=== PATIENT | female | born 1940 | race Caucasian/White ===

== ENCOUNTER → 2018-08-21 10:35 | Outpatient (CLI) | payer MEDICARE, SELFPAY ==
[2018-08-21 11:57] LABS: Alanine Aminotransferase 24 U/L (12-78); Albumin Level 3.6 gm/dL (3.4-5.0); Alkaline Phosphatase 66 U/L (46-116); Aspartate Amino Transferase 14 U/L (15-37); Bilirubin,Direct 0.1 mg/dL (0.0-0.2); Bilirubin,Indirect 0.4 mg/dL (0.0-0.9); Bilirubin,Total 0.5 mg/dL (0.2-1.0); Chol/HDL Ratio 3.8 (1-3.5); Cholesterol 248 mg/dL (140-200); HDL Cholesterol 66 mg/dL (29-89); LDL Cholesterol 157 mg/dL (0-130); Total Protein,Serum 6.4 gm/dL (6.4-8.2); Triglycerides 125 mg/dL (30-200); VLDL Cholesterol 25 mg/dL (0-40)
== END ==
PROVIDERS: Visit Provider Internal Medicine
DX: E78.5 Hyperlipidemia, unspecified (principal); I25.10 Atherosclerotic heart disease of native coronary artery without angina pectoris
CPT/HCPCS: 80061; 80076

== ENCOUNTER → 2018-10-21 09:30 | Outpatient (CLI) | payer MEDICARE, SELFPAY ==
--- NOTE | 2018-10-21 09:35 | MM_ITS ---
MM Dig screening mamm BI w/CAD ORDERING PHYSICIAN : Max Hughes MD PATIENT AGE: 77 years GENDER: Female COMPARISON: June 20142012, 2011, September 2017, INDICATION: ITS.REASON: SCREENING no hormones. No new complaints. Family history. Sibling sister with breast cancer. Premenopausal TECHNIQUE: Standard CC and MLO images were obtained. R2 CAD reviewed. FINDINGS: Mild residual fibroglandular elements. Mild asymmetry. But overall similar appearance since multiple previous studies RIGHT BREAST:No new findings The asymmetric area of tissue superior right breast on MLO view appears stable. The area of minimal density at the medial right breast on cc view is stable. LEFT BREAST:. No new areas of concern Stable mild asymmetric breast tissue inferior left breast IMPRESSION: Stable bilateral mammogram . No significant new findings.. Stable mild asymmetry Follow-up in one year recommended BI-RADS Category: 2 Benign Finding(s) RECOMMENDED FOLLOW-UP: 1YR 1 YEAR FOLLOW-UP (A letter has been sent to the patient regarding results of the study.)
== END ==
PROVIDERS: PCP Internal Medicine Adolescent Medicine; Visit Provider Internal Medicine Adolescent Medicine
DX: Z12.31 Encounter for screening mammogram for malignant neoplasm of breast (principal)
CPT/HCPCS: 77067

== ENCOUNTER → 2018-11-08 10:44 | Outpatient (CLI) | payer MEDICARE, SELFPAY ==
--- NOTE | 2018-11-08 10:47 | XR_ITS ---
XR DEXA axial skeleton HISTORY: ITS.REASON: OSTEOPENIA ORDERING PHYSICIAN: Max Hughes MD PATIENT AGE: 77 years COMPARISON: 09/27/2016 FINDINGS: The BMD measured at the left femoral neck is 0.806 g/cm squared with a T score of -1.7. This is considered Osteopenic according to the World Health Organization criteria. Fracture risk is Moderate. Treatment is advised. Hip density is not significant change compared to the previous exam IMPRESSION: Osteopenia with moderate fracture risk. Recommend follow-up exam October 2020. Treatment is advised
== END ==
PROVIDERS: PCP Internal Medicine Adolescent Medicine; Visit Provider Internal Medicine Adolescent Medicine
DX: M85.89 Other specified disorders of bone density and structure, multiple sites (principal)
CPT/HCPCS: 77080

== ENCOUNTER 2019-01-17 00:31 | Observation (INO) ==
[2019-01-17 00:48] LABS: Basophils # 0.1 K/mm3 (0-0.2); Basophils % 0.9 % (0.1-2.0); Eosinophils # 0.2 K/mm3 (0.0-0.4); Eosinophils % 2.6 % (0.1-12.0); Hematocrit 40.2 % (37.0-47.0); Hemoglobin 13.3 g/dL (12.2-16.2); Lymphocytes # 3.7 K/mm3 (0.7-4.5); Lymphocytes % 40.7 % (10-50); Mean Corpuscular Hemoglobin 29.2 pg (27.0-31.2); Mean Corpuscular Volume 88.5 fl (81-99); Mean Platelet Volume 7.3 fl (7.4-10.4); Monocytes # 0.6 K/mm3 (0.1-1.0); Monocytes % 6.3 % (1.7-9.3); Neutrophils # 4.4 K/mm3 (1.8-7.8); Neutrophils % 49.4 % (37.0-80.0); Platelet Count 288 K/mm3 (142-424); Red Blood Count 4.54 M/mm3 (4.20-5.40); Red Cell Distribution Width 13.5 % (11.5-17.5)
--- NOTE | 2019-01-17 00:48 | Emergency Department Note ---
ED Disposition Clinical Impression: Renal insufficiency Chest pain Qualifiers: Chest pain type: precordial pain Qualified Code(s): R07.2 - Precordial pain HTN (hypertension) Qualifiers: Hypertension type: essential hypertension Qualified Code(s): I10 - Essential (primary) hypertension Disposition: Admitted as Observation Condition on Discharge: Good Referrals: Provider,Referral, [Referring] - - Critical Care Critical Care Time: No Attestation: On 01/17/19, the high probability of a clinically significant, sudden or life threatening deterioration of the following system(s) required my full and direct attention, intervention and personal management. The time I documented below is in addition to time spent performing reported procedures but includes the following listed in this critical care notation. Medical Decision Making - Medical Records Medical records reviewed: Yes: I reviewed the patient's medical records. - [place] Inquiry Pt receiving controlled substance: No Vital Signs: 01/17/19 00:32 Temperature 97.9 F Temperature Source Temporal Artery Scan Pulse Rate [Right Radial] 60 Respiratory Rate 18 Blood Pressure [Right Arm] 180/81 H Blood Pressure Mean [Right Arm] 114 Blood Pressure Source [Right Arm] Automatic Cuff Blood Pressure Position [Right Arm] Sitting 02 Sat by Pulse Oximetry 98 Oxygen Delivery Method Room Air - Lab Data Lab results reviewed: Yes: I reviewed the patient's lab results. Lab Results 01/17/19 00:40: WBC 9.0, RBC 4.54, Hgb 13.3, Hct 40.2, MCV 88.5, MCH 29.2, MCHC 33.0, RDW 13.5, Plt Count 288, MPV 7.3 L, Neut % (Auto) 49.4, Lymph % (Auto) 40.7, Graves % (Auto) 6.3, Eos % (Auto) 2.6, Baso % (Auto) 0.9, Neut # (Auto) 4.4, Lymph # (Auto) 3.7, Graves # (Auto) 0.6, Eos # (Auto) 0.2, Baso # (Auto) 0.1 01/17/19 00:40: Sodium 138, Potassium 4.0, Chloride 100, Carbon Dioxide 30, Anion Gap 12.0, BUN 21 H, Creatinine 1.15 H, Estimated Creat Clear 39, Estimated GFR 46 L, Est GFR ( Amer) 55 L, Glucose 114 H, Calcium 9.7, Troponin I < 0.02 Result diagrams: 01/17/19 00:40 01/17/19 00:40 Orders (Tests/Meds): ED MEDICATIONS Generic Name Dose Route Start Last Admin Trade Name Freq PRN Reason Stop Dose Admin Sodium Chloride 10 ml 01/17/19 00:39 Saline Flush 10ml Syringe IV 02/16/19 00:38 NEEDED PRN Maintain IV Site Discontinued Medications Generic Name Dose Route Start Last Admin Trade Name Freq PRN Reason Stop Dose Admin Aspirin 243 mg 01/17/19 00:39 01/17/19 00:42 Aspirin 81mg Chewable Tablet PO 01/17/19 00:40 243 mg ONCE ONE Administration ORDERS Category Date Time Status XR chest portable Stat Exams 01/17/19 00:38 Taken - Radiology Data #1 Image(s): Chest Image Reviewed: Yes I reviewed the patient's radiology image Preliminary Findings: Abnormal (no acute changes ) - ECG Data Tracing #1 Normal Sinus Rhythm: Yes Ischemic changes: non-specific ST-T wave changes - Physician Consults Physician Consulted: mercedes Reason -: Admission Chest Pain HPI - General Chief Complaint: Chest Pain Stated Complaint: chest pain Time Seen by Provider: 01/17/19 00:35 Mode of Arrival: Ambulatory Source of Information: Patient, Relative, Medical Record Limitations: No Limitations Description of Symptoms (Recalled from ER Triage Doc. by RN): pt reports she was sitting at home when she started having chest pain that "felt like her heart was going to explode" reports she started shaking and having chest pain (left chest wall) that radiates into her neck, reports pain has decreased since arriving to the ED - History of Present Illness HPI narrative: acute onset of chest pain at rest with rad to neck assoc with inc hr and no syncope and lasted a few minutes MD complaint: chest pain indicative of cardiac Onset (ago): minute(s) Duration: now resolved Activity at onset: during rest Pain location: left chest Severity: moderate Quality: sharp Pain radiation: neck Risk Factors for CAD: Hypertension, Family Hx of CAD Treatments prior to or on arrival for Cardiac Chest Pain: none - LOUIS Score for Non-Stemi Age of Patient: 70-79 years old Heart Rate: 50-69 bpm Systolic Blood Pressure: 160-199 mmHg Serum Creatinine: 0.80-1.19 mg/dl CHF Kill[place] Class: I-No CHF Other Risk Factors: None Non-Stemi Risk Score: 95 - Related Data Prior Cardiac Testing/Procedures: Stenting On Oral Contraceptives: No Home Medications Medication Instructions Recorded Confirmed aspirin 81 mg tablet,delayed 81 mg PO QDAY 12/17/17 11/12/18 release bisoprolol 2.5 1 tab PO QDAY 12/17/17 11/12/18 mg-hydrochlorothiazide 6.25 mg tablet clopidogrel 75 mg tablet 75 mg PO QDAY 12/17/17 11/12/18 nitroglycerin 0.4 mg sublingual 0.4 mg SUBLINGUAL Q5M PRN 12/17/17 11/12/18 tablet pantoprazole 40 mg tablet,delayed 40 mg PO QDAY 12/17/17 11/12/18 release calcium carbonate 500 mg (1,250 1 tab PO DAILY tab 05/14/18 11/12/18 mg)-vitamin D3 400 unit tablet Previous Rx's Medication Instructions Recorded lisinopril 20 mg tablet 20 mg PO QDAY #60 tab 12/18/17 blood pressure monitor kit See Dose Instructions .ROUTE 08/20/18 .MEDSUPPLY #1 each ezetimibe 10 mg tablet 10 mg PO DAILY #30 tab 09/11/18 atorvastatin 20 mg tablet 20 mg PO QHS #30 tab 11/12/18 Allergies Allergy/AdvReac Type Severity Reaction Status Date / Time azithromycin Allergy Unknown Verified 11/12/18 10:10 [facility] History - Hepatitis A Screen Drug use history?: No High risk sexual behaviors?: No History of sexually transmitted infection?: No Currently employed?: No Childcare worker?: No Do you have indoor plumbing?: Yes Do you have electricity?: Yes Attestation statement:: This patient has been screened for Hepatitis A risk factors. I have reviewed the patient's past medical history: Yes Medical History: Reports:: Coronary Artery Disease, Hyperlipidemia, Hypertension Other Medical History: Reports: Thyroid Disease Other Surgeries: Yes: Coronary Stent - Social History Smoking Status: Never smoker Alcohol Intake: never Occupational Status: unemployed - Psychiatric History Expresses thoughts of harming self/others: None Suicide Plan Description: No Plan Family Hx:: No significant family history ROS Obtained: Yes All systems reviewed & no additional complaints - Constitutional Constitutional: Denies fever(s) - Eyes Eyes: Denies change in vision - ENT Ears, Nose, Mouth, and Throat: Denies sore throat - Cardiovascular Cardiovascular: Reports chest pain, Reports chest pain at rest, Denies dyspnea, Reports radiating jaw, neck or arm pain, Reports rapid heart rate - Respiratory Respiratory: No cough - Gastrointestinal Gastrointestingal: Denies: abdominal pain - Genitourinary Female Genitourinary: Denies hematuria - Musculoskeletal Musculoskeletal: Denies back pain - Integumentary/Breasts Skin/Breast: Denies rash - Neurologic Neurologic: Denies seizure-like activity Physical Exam - General General appearance: in no apparent distress - Head Head exam: normocephalic - Eye Eye exam: Present: PERRL, EOMI. Absent: scleral icterus - ENT ENT exam: Present: mucous membranes moist - Neck Neck exam: Present: trachea midline - Respiratory Respiratory exam: Present: normal lung sounds bilaterally. Absent: respiratory distress - Cardiovascular Cardiovascular exam: Present: regular rate, systolic murmur, +S4 - Abdominal Exam Abdominal exam: Present: soft. Absent: tenderness - Extremities Exam Extremities exam: Present: full ROM, pedal edema. Absent: calf tenderness - Neurological Exam Neurological exam: Present: alert, oriented X3, CN II-XII intact - Psychiatric Psychiatric exam: Present: normal affect - Skin Skin exam: Absent: rash
[2019-01-17 01:03] LABS: Blood Urea Nitrogen 21 mg/dL (7-18); Calcium 9.7 mg/dL (8.5-10.1); Carbon Dioxide 30 mmol/L (21.0-32.0); Chloride 100 mmol/L (98-107); Glucose 114 mg/dL (74-106); Sodium 138 mmol/L (136-145)
[2019-01-17 04:37] LABS: Basophils # 0.1 K/mm3 (0-0.2); Basophils % 0.9 % (0.1-2.0); Eosinophils # 0.2 K/mm3 (0.0-0.4); Eosinophils % 2.3 % (0.1-12.0); Hematocrit 38.3 % (37.0-47.0); Hemoglobin 12.7 g/dL (12.2-16.2); Lymphocytes # 3.1 K/mm3 (0.7-4.5); Lymphocytes % 39.7 % (10-50); Mean Corpuscular HGB Conc 33.1 g/dL (31.8-35.4); Mean Corpuscular Hemoglobin 29.4 pg (27.0-31.2); Mean Corpuscular Volume 88.8 fl (81-99); Mean Platelet Volume 7.4 fl (7.4-10.4); Monocytes # 0.4 K/mm3 (0.1-1.0); Monocytes % 5.1 % (1.7-9.3); Platelet Count 251 K/mm3 (142-424); Red Blood Count 4.31 M/mm3 (4.20-5.40); Red Cell Distribution Width 13.5 % (11.5-17.5); White Blood Count 7.7 K/mm3 (4.8-10.8)
[2019-01-17 04:47] LABS: Anion Gap 10.3 mEq/L (5-15); Calcium 9.2 mg/dL (8.5-10.1); Chol/HDL Ratio 3.8 (1-3.5); Potassium 4.3 mmoL/L (3.5-5.1)
--- NOTE | 2019-01-17 07:18 | Pharmacy Consult Notes ---
[facility] Pharmacy VTE Monitoring - Patient Demographics Admission date: 01/16/19 Report Date: 01/17/19 Time: 07:17 Allergies/Adverse Reactions: Patient Allergies azithromycin Allergy (Unknown, Verified 11/12/18 10:10) Height: 1.57 m Weight: 63.6 kg Patient Problems: Current Active Problems Chest pain (Acute) Renal insufficiency (Acute) HTN (hypertension) (Chronic) - VTE Risk Labs: VTE Related Lab Results Hgb 12.7 g/dL (12.2-16.2) 01/17/19 04:27 Hct 38.3 % (37.0-47.0) 01/17/19 04:27 Plt Count 251 K/mm3 (142-424) 01/17/19 04:27 BUN 19 mg/dL (7-18) H 01/17/19 04:27 Creatinine 1.05 mg/dL (0.55-1.02) H 01/17/19 04:27 Estimated Creat Clear 44 mL/min (50-200) 01/17/19 04:27 Was VTE Risk Assessment Performed: Yes VTE Score: 1 VTE Risk Level: Very Low Risk Clinical Trial Participant: No - Prophylaxis VTE Prophylaxis Ordered?: Yes Types of VTE Prophylaxis: TEDS Knee High
--- NOTE | 2019-01-17 08:17 | History & Physical Report ---
*Admission Date: 01/16/19 *Chief complaint: Chest pain/coronary atherosclerosis *History of present illness: 78-year-old white female with known cardiac disease, status post left heart cath with stenting of circumflex artery as noted below: (ANGIOGRAPHIC RESULTS: 2015 1. The left main artery normal 2. The left anterior descending artery has proximal 30% stenoses followed by an additional 50% stenosis immediately adjacent to the first septal cheese tester. Distal to the second diagonal artery there is 30-40% concentric stenoses. Distally there are 30% stenoses 3. The circumflex artery is nondominant yet still a large vessel supplying a large 3 mm obtuse marginal artery. There is a proximal 50% followed by a focal 90% stenosis in this large vessel 4. The right coronary artery is dominant and has proximal eccentric 30% stenosis which is long and extends throughout the entire mid segment 5. The QUINTANILLA ventriculogram reveals normal 65% 6. The left ventricular end-diastolic pressure 10 mmHg IMPRESSION: 1. Severe stenosis in the large obtuse marginal artery supplying the large amount of myocardium 2. Moderate proximal and mid LAD disease as described above 3. Normal ejection fraction 4. Normal left ventricular end-diastolic pressure PLAN: 1. Brilinta and aspirin will be started 2. Patient will be transferred will undergo stenting of her circumflex artery today 3. Risk factor modification 4. LDL will be managed medically at this point although I may consider performing an FFR on the LAD today after stenting of the obtuse marginal artery) Patient did well after this stenting procedure but has not been able to tolerate statins. Early this morning woke up with crushing, substernal chest associated with shortness of air and nausea, but came to the emergency department. Admitted to hospital. Troponins negative but significant history and known coronary disease is very concerning. [facility] History I have reviewed the patient's past medical history: Yes Medical History: Reports:: Coronary Artery Disease, Hyperlipidemia, Hypertension Denies:: Diabetes Mellitus Type 1, Diabetes Mellitus Type 2 *Have you ever received a pneumonia vaccine?: Yes *Have you received a flu vaccine this season?: Yes Other Medical History: Reports: Thyroid Disease Laterality Cases: Bilateral: Cataract Other Surgeries: Yes: Coronary Stent, Hysterectomy-Partial - *Social History Educational Level: Attended College Smoking Status: Never smoker Alcohol Intake: never *Occupational Status:: retired Housing: house Household Members: children *Travel in the last 8 weeks: None - Psychiatric History Expresses thoughts of harming self/others: None Suicide Plan Description: No Plan Family Hx:: Cancer Review of Systems - Review of Systems Review of systems:: pertinent systems reviewed and negative unless documented below - Constitutional Denies anorexia, Denies body ache(s) - Eyes Denies blind spots, Denies blurry vision - ENT Denies abnormal hearing, Denies bleeding gums - *Cardiovascular Reports chest pain, Reports shortness of breath, Reports shortness of breath with activity, Reports leg swelling, Reports shortness of breath when lying down, Denies irregular heart rhythm - *Respiratory Denies change in phlegm color, Denies chest congestion, Denies cough - *Gastrointestinal Denies abdominal pain, Denies belching, Denies bloating - *Genitourinary Denies abnormal periods - *Musculoskeletal Denies abnormal walking, Denies joint pain - Integumentary/Breasts Denies hair loss - *Neurologic Denies abnormal walking, Denies abnormal hearing, Denies seizure-like activity - Psychiatric Denies abnormal sleep pattern - Endocrine Denies cold intolerance - Hematologic/Lymphatic Denies easy bleeding, Denies easy bruising Meds Home Medications Medication Instructions Recorded Confirmed Type aspirin 81 mg tablet,delayed 81 mg PO DAILY 12/17/17 01/17/19 History release bisoprolol 2.5 1 tab PO DAILY 12/17/17 01/17/19 History mg-hydrochlorothiazide 6.25 mg tablet clopidogrel 75 mg tablet 75 mg PO DAILY 12/17/17 01/17/19 History nitroglycerin 0.4 mg sublingual 0.4 mg SUBLINGUAL Q5M PRN 12/17/17 01/17/19 History tablet pantoprazole 40 mg tablet,delayed 40 mg PO DAILY 12/17/17 01/17/19 History release calcium carbonate 500 mg (1,250 1 tab PO DAILY tab 05/14/18 01/17/19 History mg)-vitamin D3 400 unit tablet Alendronate Sodium [Alendronate 35 mg PO WEEKLY 01/17/19 01/17/19 History 35mg Tablet] Atorvastatin Calcium [Atorvastatin 20 mg PO HS 01/17/19 01/17/19 History 20mg Tab] Ezetimibe 10 mg PO DAILY 01/17/19 01/17/19 History Lisinopril [Lisinopril 20mg Tab] 20 mg PO DAILY 01/17/19 01/17/19 History Allergies Allergy/AdvReac Type Severity Reaction Status Date / Time azithromycin Allergy Unknown Verified 11/12/18 10:10 Exam Vital signs and Labs for Last 24 Hours: Temp Pulse Resp BP Pulse Ox 97.6 F 55 L 20 149/79 H 97 01/17/19 04:00 01/17/19 04:00 01/17/19 04:00 01/17/19 04:00 01/17/19 04:00 Laboratory Results - last 24 hr 01/17/19 00:40: WBC 9.0, RBC 4.54, Hgb 13.3, Hct 40.2, MCV 88.5, MCH 29.2, MCHC 33.0, RDW 13.5, Plt Count 288, MPV 7.3 L, Neut % (Auto) 49.4, Lymph % (Auto) 40.7, Burnett % (Auto) 6.3, Eos % (Auto) 2.6, Baso % (Auto) 0.9, Neut # (Auto) 4.4, Lymph # (Auto) 3.7, Burnett # (Auto) 0.6, Eos # (Auto) 0.2, Baso # (Auto) 0.1 01/17/19 00:40: Sodium 138, Potassium 4.0, Chloride 100, Carbon Dioxide 30, Anion Gap 12.0, BUN 21 H, Creatinine 1.15 H, Estimated Creat Clear 39, Estimated GFR 46 L, Est GFR ( Amer) 55 L, Glucose 114 H, Calcium 9.7, Troponin I < 0.02 01/17/19 04:27: Troponin I 0.02 01/17/19 04:27: WBC 7.7, RBC 4.31, Hgb 12.7, Hct 38.3, MCV 88.8, MCH 29.4, MCHC 33.1, RDW 13.5, Plt Count 251, MPV 7.4, Neut % (Auto) 52.0, Lymph % (Auto) 39.7, Burnett % (Auto) 5.1, Eos % (Auto) 2.3, Baso % (Auto) 0.9, Neut # (Auto) 4.0, Lymph # (Auto) 3.1, Burnett # (Auto) 0.4, Eos # (Auto) 0.2, Baso # (Auto) 0.1 01/17/19 04:27: Sodium 140, Potassium 4.3, Chloride 104, Carbon Dioxide 30, Anion Gap 10.3, BUN 19 H, Creatinine 1.05 H, Estimated Creat Clear 44, Estimated GFR 51 L, Est GFR ( Amer) 61, Glucose 104, Calcium 9.2, Magnesium 2.0, Triglycerides 100, Cholesterol 229 H, LDL Cholesterol 148 H, VLDL Cholesterol 20, HDL Cholesterol 61, Cholesterol/HDL Ratio 3.8 H 01/17/19 07:18: Troponin I 0.03 I & O for Last 24 hours: Intake & Output 01/14/19 01/15/19 01/16/19 01/17/19 11:59 11:59 11:59 11:59 Intake Total 176 / 176 Balance 176 / 176 Weight 140 lb 3.424 oz - Constitutional no acute distress, average body habitus - *Routine HEENT Exam Head: Present: normocephalic, atraumatic Eye: Present: EOMI, PERRL. Absent: conjunctival icterus ENT: Absent: mucous membranes moist - *Routine Neck Exam Present: supple, full ROM. Absent: JVD - *Routine Respiratory Exam Present: CTA bilaterally. Absent: accessory muscle use - *Routine Cardiovascular Exam Present: RRR, Normal S1, Normal S2. Absent: murmur - *Routine Abdominal Exam Present: soft, normoactive bowel sounds, tenderness - *Routine Extremities Exam Absent: cyanosis, clubbing, edema, full ROM - *Routine Skin Exam Present: intact. Absent: cyanosis - *Routine Neurological Exam Present: alert, oriented X3, CN II-XII intact Assessment and Plan (1) Chest pain Current visit: Yes Status: Acute Qualifiers: Chest pain type: precordial pain Qualified Code(s): R07.2 - Precordial pain Category: Medical Code(s): R07.9 - Chest pain, unspecified Negative troponins. See notes below. (2) HTN (hypertension) Current visit: Yes Status: Chronic Qualifiers: Hypertension type: essential hypertension Qualified Code(s): I10 - Essential (primary) hypertension Category: Medical Code(s): I10 - Essential (primary) hypertension Well-controlled. No changes (3) CAD (coronary artery disease) Current visit: No Status: Chronic Qualifiers: Coronary Disease-Associated Artery/Lesion type: curyung artery [place] vs. transplanted heart: curyung heart Associated angina: without angina Qualified Code(s): I25.10 - Atherosclerotic heart disease of curyung coronary artery without angina pectoris Category: Medical Code(s): I25.10 - Atherosclerotic heart disease of curyung coronary artery without angina pectoris Given patient's significant disease noted on catheterization 3 years ago and high likelihood of recurrence of symptomatic disease would recommend left heart cath. Discussed case with cardiology
--- NOTE | 2019-01-17 11:38 | Consult Report ---
History of Present Illness Consult date: 01/17/19 Requesting physician: Max Hughes Consult reason: chest pain Chief complaint: Crusing chest pain and shortness of breath Additional Medical History:: 1. Unstable angina (01/17/2019) a. History of Coronary Artery Disease 2. Dyspnea (01/17/2019) 3. Hypertension a. Controlled on anti-hypertensives 4. Hyperlipidemia a. LDL 148 (01/17/2019) b. Intolerable to statins. 5. Thyroid Disease History of present illness: 78 year old white female presented in the ED with crushing chest pain and shortness of breath. Pt stated the crushing chest pain woke her up from sleep. Pt stated increase shortness of breath with chest pain. Denies cough. Denies swelling of the lower extremities. Pt stated history of Coronary artery disease, hypertension and hyperlipidemia. Denies tobacco usage. Initial work up performed in the ED. ECG revealed sinus rhythm with non-specific ST & T wave changes. CXR revealed no acute findings. Lab results revealed Negative troponins, creatinine 1.15, BUN 21 and LDL 148. Due to pt's unstable angina, will recommend left heart catherization this am. Discussed risk and benefits of the left heart catherization proceed. Pt was agreeable to proceed. Dr. Doll notified. Pending on the results of heart catheterization, further testing and/or additional medication therapy may be recommended. Thank you for letting Cardiology participate in the care of your patient. This H&P was dictated prior to heart catheterization. [facility] History Medical History: Reports:: Coronary Artery Disease, Hyperlipidemia, Hypertension Denies:: Diabetes Mellitus Type 1, Diabetes Mellitus Type 2 *Have you ever received a pneumonia vaccine?: Yes *Have you received a flu vaccine this season?: Yes Other Medical History: Reports: Thyroid Disease Laterality Cases: Bilateral: Cataract Other Surgeries: Yes: Coronary Stent, Hysterectomy-Partial - *Social History Educational Level: Attended College Smoking Status: Never smoker Alcohol Intake: never *Occupational Status:: retired Housing: house Household Members: children *Travel in the last 8 weeks: None - Psychiatric History Expresses thoughts of harming self/others: None Suicide Plan Description: No Plan Family Hx:: Cancer Meds Home Medications Medication Instructions Recorded Confirmed Type aspirin 81 mg tablet,delayed 81 mg PO DAILY 12/17/17 01/17/19 History release bisoprolol 2.5 1 tab PO DAILY 12/17/17 01/17/19 History mg-hydrochlorothiazide 6.25 mg tablet clopidogrel 75 mg tablet 75 mg PO DAILY 12/17/17 01/17/19 History nitroglycerin 0.4 mg sublingual 0.4 mg SUBLINGUAL Q5M PRN 12/17/17 01/17/19 History tablet pantoprazole 40 mg tablet,delayed 40 mg PO DAILY 12/17/17 01/17/19 History release calcium carbonate 500 mg (1,250 1 tab PO DAILY tab 05/14/18 01/17/19 History mg)-vitamin D3 400 unit tablet Alendronate Sodium [Alendronate 35 mg PO WEEKLY 01/17/19 01/17/19 History 35mg Tablet] Atorvastatin Calcium [Atorvastatin 20 mg PO HS 01/17/19 01/17/19 History 20mg Tab] Ezetimibe 10 mg PO DAILY 01/17/19 01/17/19 History Lisinopril [Lisinopril 20mg Tab] 20 mg PO DAILY 01/17/19 01/17/19 History Allergies Allergy/AdvReac Type Severity Reaction Status Date / Time azithromycin Allergy Unknown Verified 11/12/18 10:10 Review of Systems - Review of Systems Review of systems:: pertinent systems reviewed and negative unless documented below - Constitutional Reports weakness - *Cardiovascular Reports chest pain, Reports chest pain at rest, Reports shortness of breath, Reports rapid, pounding, or irregular heartbeat - *Neurologic Denies abnormal walking, Denies abnormal hearing, Denies seizure-like activity Exam Vital signs and Labs for Last 24 Hours: Temp Pulse Resp BP Pulse Ox 97.7 F 57 L 16 143/70 H 98 01/17/19 10:00 01/17/19 10:56 01/17/19 10:56 01/17/19 10:56 01/17/19 10:56 Laboratory Results - last 24 hr 01/17/19 00:40: WBC 9.0, RBC 4.54, Hgb 13.3, Hct 40.2, MCV 88.5, MCH 29.2, MCHC 33.0, RDW 13.5, Plt Count 288, MPV 7.3 L, Neut % (Auto) 49.4, Lymph % (Auto) 40.7, [place] % (Auto) 6.3, Eos % (Auto) 2.6, Baso % (Auto) 0.9, Neut # (Auto) 4.4, Lymph # (Auto) 3.7, [place] # (Auto) 0.6, Eos # (Auto) 0.2, Baso # (Auto) 0.1 01/17/19 00:40: Sodium 138, Potassium 4.0, Chloride 100, Carbon Dioxide 30, Anion Gap 12.0, BUN 21 H, Creatinine 1.15 H, Estimated Creat Clear 39, Estimated GFR 46 L, Est GFR ( Amer) 55 L, Glucose 114 H, Calcium 9.7, Troponin I < 0.02 01/17/19 04:27: Troponin I 0.02 01/17/19 04:27: WBC 7.7, RBC 4.31, Hgb 12.7, Hct 38.3, MCV 88.8, MCH 29.4, MCHC 33.1, RDW 13.5, Plt Count 251, MPV 7.4, Neut % (Auto) 52.0, Lymph % (Auto) 39.7, [place] % (Auto) 5.1, Eos % (Auto) 2.3, Baso % (Auto) 0.9, Neut # (Auto) 4.0, Lymph # (Auto) 3.1, [place] # (Auto) 0.4, Eos # (Auto) 0.2, Baso # (Auto) 0.1 01/17/19 04:27: Sodium 140, Potassium 4.3, Chloride 104, Carbon Dioxide 30, Anion Gap 10.3, BUN 19 H, Creatinine 1.05 H, Estimated Creat Clear 44, Estimated GFR 51 L, Est GFR ( Amer) 61, Glucose 104, Calcium 9.2, Magnesium 2.0, Triglycerides 100, Cholesterol 229 H, LDL Cholesterol 148 H, VLDL Cholesterol 20, HDL Cholesterol 61, Cholesterol/HDL Ratio 3.8 H 01/17/19 07:18: Troponin I 0.03 01/17/19 09:31: Activated Clotting Time 286 H* 01/17/19 09:37: Activated Clotting Time 298 H* I & O for Last 24 hours: Intake & Output 01/14/19 01/15/19 01/16/19 01/17/19 23:59 23:59 23:59 23:59 Intake Total 176 / 176 Balance 176 / 176 Weight 140 lb 3.424 oz - Constitutional mild distress, cooperative - *Routine HEENT Exam Head: Present: normocephalic - *Routine Neck Exam Present: supple, full ROM, JVD, normal carotid upstroke. Absent: carotid bruit, lymphadenopathy - Routine Chest/Breast/Axilla Exam Chest wall: Present: tenderness. Absent: mass, pacemaker - *Routine Respiratory Exam Present: CTA bilaterally. Absent: wheezes, crackles - *Routine Cardiovascular Exam Present: RRR, Normal S1, Normal S2. Absent: murmur, gallop, rubs, click, bradycardia, irregular rhythm - *Routine Abdominal Exam Present: soft, normoactive bowel sounds. Absent: guarding, mass - *Routine Extremities Exam Present: full ROM, pulses intact, normal capillary refill. Absent: cyanosis, clubbing, edema - *Routine Skin Exam Present: intact, warm, normal turgor. Absent: cyanosis, erythema, dry - *Routine Neurological Exam Present: alert, oriented X3, CN II-XII intact, motor deficit, normal reflexes, moving all extremities. Absent: sensory deficit - Routine Psychiatric Exam Present: normal affect, normal thought process, cooperative, good judgment. Absent: suicidal ideation Assessment and Plan (1) Chest pain Current visit: Yes Status: Acute Qualifiers: Chest pain type: precordial pain Qualified Code(s): R07.2 - Precordial pain Category: Medical Code(s): R07.9 - Chest pain, unspecified (2) HTN (hypertension) Current visit: Yes Status: Chronic Qualifiers: Hypertension type: essential hypertension Qualified Code(s): I10 - [place] l (primary) hypertension Category: Medical Code(s): I10 - Essential (primary) hypertension (3) CAD (coronary artery disease) Current visit: No Status: Chronic Qualifiers: Coronary Disease-Associated Artery/Lesion type: [place] artery [place] vs. transplanted heart: [place] heart Associated angina: without angina Qualified Code(s): I25.10 - Atherosclerotic heart disease of [place] coronary artery without angina pectoris Category: Medical Code(s): I25.10 - Atherosclerotic heart disease of [place] coronary artery without angina pectoris (4) Unstable angina Current visit: Yes Status: Acute Category: Medical Code(s): I20.0 - Unstable angina (5) HLD (hyperlipidemia) Current visit: No Status: Chronic Qualifiers: Hyperlipidemia type: other hyperlipidemia Category: Medical Code(s): E78.5 - Hyperlipidemia, unspecified - Assessment and plan all Dx Assessment and Plan for all problems:: Plan: 1. Schedule Left Heart catheterization this morning. 2. Pending on the results of heart catheterization, may recommend further testing and/or additional medication therapy.
--- NOTE | 2019-01-17 12:35 | Cardiology Report ---
PROCEDURE: 2-D M-mode and color Doppler study INDICATIONS FOR THE TEST: Chest pain COPD Heart Murmur Tobacco Smoking Palpitations+ Fatigue Syncope Edema Hypertension+Diabetes Mellitus Rheumatic Fever SOB REEDER Obesity Hyperlipidemia+ Family History HD Additional History CAD, STENT, RBBB PATIENT INFORMATION HEIGHT: 62 WEIGHT:138 GENDER: Female B/P:180/81 2-D/M-MODE INTERPRETATION: 2-D MEASUREMENTS OBSERVED VALUES IN CMS Right Ventricular Dimension (RVDd) 1.9 Interventricular Septum (Thickness)(IVsd) 1.2 Left Ventricular Internal Dimensions(LVIDd) 5.3 Left Ventricular Posterior Wall (Thickness)(LVPWd) 0.8 Aortic Root 2.9 Aortic Cusp Separation 2.1 Left Atrial Dimensions (LAD) 3.7 2D 1. Left atrium is mildly enlarged, left ventricle is normal size, mild concentric left ventricular hypertrophy, visually estimated ejection fraction 55% with no regional wall motion abnormality. 2. The right atrium and right ventricle are normal size and contractility. 3. The aortic valve is thickened and calcified leaflet continue to display mobility. 4. The mitral and tricuspid valve leaflets are minimally thickened. 5. The pulmonic valve is poorly visualized. 6. No significant pericardial effusion noted. DOPPLER INTERROGATION: Doppler interrogation of the aortic, mitral and tricuspid valvular presence of moderate aortic, moderate mitral and mild tricuspid regurgitation, tricuspid regurgitation jet velocity is inadequate for calculation of the right ventricular systolic pressure, Doppler evidence of impaired LV relaxation seen, there is no tissue Doppler performed. CONCLUSION: 1. Mildly enlarged left atrium, normal left ventricular size, mild concentric left ventricular hypertrophy, visually estimated ejection fraction of 55% with no regional wall motion abnormality, diastolic parameters are inconclusive. 2. Moderate aortic, moderate mitral and mild tricuspid regurgitation 3. No significant pericardial effusion noted.
--- NOTE | 2019-01-17 14:02 | Discharge Summary ---
General - General Admission date:: 01/17/19 Discharge date: 01/17/19 HPI HPI: 78-year-old white female with known cardiac disease, status post left heart cath with stenting of circumflex artery as noted below: (ANGIOGRAPHIC RESULTS: 2015 1. The left main artery normal 2. The left anterior descending artery has proximal 30% stenoses followed by an additional 50% stenosis immediately adjacent to the first septal energy infrastructure engineer. Distal to the second diagonal artery there is 30-40% concentric stenoses. Distally there are 30% stenoses 3. The circumflex artery is nondominant yet still a large vessel supplying a large 3 mm obtuse marginal artery. There is a proximal 50% followed by a focal 90% stenosis in this large vessel 4. The right coronary artery is dominant and has proximal eccentric 30% stenosis which is long and extends throughout the entire mid segment 5. The [place] ventriculogram reveals normal 65% 6. The left ventricular end-diastolic pressure 10 mmHg IMPRESSION: 1. Severe stenosis in the large obtuse marginal artery supplying the large amount of myocardium 2. Moderate proximal and mid LAD disease as described above 3. Normal ejection fraction 4. Normal left ventricular end-diastolic pressure PLAN: 1. Brilinta and aspirin will be started 2. Patient will be transferred will undergo stenting of her circumflex artery today 3. Risk factor modification 4. LDL will be managed medically at this point although I may consider performing an FFR on the LAD today after stenting of the obtuse marginal artery) Patient did well after this stenting procedure but has not been able to tolerate statins. Early this morning woke up with crushing, substernal chest associated with shortness of air and nausea, but came to the emergency department. Admitted to hospital. Troponins negative but significant history and known coronary disease is very concerning. Hospital Course Hospital Course: Patient was admitted to hospital. Because of her prior history of coronary dise ase she was subjected to left heart cath. Please see results from cardiology imaging study noted below: ANGIOGRAPHIC RESULTS: 1. The left main artery normal 2. The left anterior descending artery has a proximal 50% concentric stenosis followed by 30% stenoses. The remaining vessel is tortuous with mild nonflow limiting 10% stenoses 3. The circumflex artery is a nondominant yet still large vessel which has a stent in its very proximal segment which extends just proximal to the first obtuse marginal artery. The stent is widely patent with excellent proximal distal transitioning. There is a smooth 30% stenosis which extends distal to the stent into the first obtuse marginal artery 4. The right coronary artery is a large dominant vessel and has proximal 10% stenoses with mid vessel 20 and 30% stenoses. Distal to the RV marginal branch is a 30% stenosis followed by a concentric 70% diameter stenosis 5. The QU[place] ventriculogram reveals normal 65% 6. The left ventricular end-diastolic pressure 15 mmHg IMPRESSION: 1. Coronary artery disease as described above 2. Positive IFR of 0.83 and positive ischemic response to adenosine with an FFR of 0.79 3. Successful stenting of the proximal LAD hemodynamically severe disease reduced to 0% with 1 drug-eluting stent as described above 4. Severe stenosis in the distal dominant right coronary artery with successful stenting of the mid to distal dominant right coronary artery mild/moderate and severe disease reduced to 0% with one contiguous stent 5. Patent stent in the ostial proximal circumflex artery with excellent transitioning followed by mild nonflow limiting disease in the first obtuse marginal artery 6. Normal ejection fraction 7. Normal left ventricular end-diastolic pressure PLAN: 1. Dual antiplatelet therapy for one year 2. LDL less than 55 3. Risk factor modification 4. Avoidance of tobacco products 5. Cardiac rehabilitation Patient tolerated the above procedure well. Was monitored post procedure appropriately and was discharged home with dual antiplatelet therapy continuing, a trial of rosuvastatin low-dose at 5 mg given her previous intolerance to other statins. I will follow her closely in the office. Objective Vital signs: Temp Pulse Resp BP Pulse Ox 98.0 F 54 L 16 128/78 99 01/17/19 13:05 01/17/19 13:05 01/17/19 13:05 01/17/19 13:05 01/17/19 13:05 no acute distress, average body habitus - *Routine HEENT Exam Head: Present: normocephalic, atraumatic Eye: Present: EOMI, PERRL ENT: Present: mucous membranes moist - *Routine Neck Exam Present: supple, full ROM. Absent: JVD, carotid bruit - *Routine Respiratory Exam Present: CTA bilaterally. Absent: accessory muscle use - *Routine Cardiovascular Exam Present: RRR, Normal S1, Normal S2 - *Routine Abdominal Exam Present: soft, normoactive bowel sounds - *Routine Extremities Exam Absent: cyanosis, clubbing, edema - *Routine Neurological Exam Present: alert, oriented X3 Results Labs on day of discharge: Labs from last 24 hours 01/17/19 01/17/19 01/17/19 09:37 09:31 07:18 WBC RBC Hgb Hct MCV MCH MCHC RDW Plt Count MPV Neut % (Auto) Lymph % (Auto) [place] % (Auto) Eos % (Auto) Baso % (Auto) Neut # (Auto) Lymph # (Auto) [place] # (Auto) Eos # (Auto) Baso # (Auto) Activated Clotting Time 298 H* 286 H* Sodium Potassium Chloride Carbon Dioxide Anion Gap BUN Creatinine Estimated Creat Clear Estimated GFR Est GFR ( Amer) Glucose Calcium Magnesium Troponin I 0.03 Triglycerides Cholesterol LDL Cholesterol VLDL Cholesterol HDL Cholesterol Cholesterol/HDL Ratio 01/17/19 01/17/19 01/17/19 04:27 04:27 04:27 WBC 7.7 RBC 4.31 Hgb 12.7 Hct 38.3 MCV 88.8 MCH 29.4 MCHC 33.1 RDW 13.5 Plt Count 251 MPV 7.4 Neut % (Auto) 52.0 Lymph % (Auto) 39.7 [place] % (Auto) 5.1 Eos % (Auto) 2.3 Baso % (Auto) 0.9 Neut # (Auto) 4.0 Lymph # (Auto) 3.1 [place] # (Auto) 0.4 Eos # (Auto) 0.2 Baso # (Auto) 0.1 Activated Clotting Time Sodium 140 Potassium 4.3 Chloride 104 Carbon Dioxide 30 Anion Gap 10.3 BUN 19 H Creatinine 1.05 H Estimated Creat Clear 44 Estimated GFR 51 L Est GFR ( Amer) 61 Glucose 104 Calcium 9.2 Magnesium 2.0 Troponin I 0.02 Triglycerides 100 Cholesterol 229 H LDL Cholesterol 148 H VLDL Cholesterol 20 HDL Cholesterol 61 Cholesterol/HDL Ratio 3.8 H 01/17/19 01/17/19 00:40 00:40 WBC 9.0 RBC 4.54 Hgb 13.3 Hct 40.2 MCV 88.5 MCH 29.2 MCHC 33.0 RDW 13.5 Plt Count 288 MPV 7.3 L Neut % (Auto) 49.4 Lymph % (Auto) 40.7 [place] % (Auto) 6.3 Eos % (Auto) 2.6 Baso % (Auto) 0.9 Neut # (Auto) 4.4 Lymph # (Auto) 3.7 [place] # (Auto) 0.6 Eos # (Auto) 0.2 Baso # (Auto) 0.1 Activated Clotting Time Sodium 138 Potassium 4.0 Chloride 100 Carbon Dioxide 30 Anion Gap 12.0 BUN 21 H Creatinine 1.15 H Estimated Creat Clear 39 Estimated GFR 46 L Est GFR ( Amer) 55 L Glucose 114 H Calcium 9.7 Magnesium Troponin I < 0.02 Triglycerides Cholesterol LDL Cholesterol VLDL Cholesterol HDL Cholesterol Cholesterol/HDL Ratio DS: Diagnosis - Discharge Diagnosis (1) Chest pain Status: Resolved (2) HTN (hypertension) Status: Chronic (3) CAD (coronary artery disease) Status: Chronic (4) Unstable angina Status: Resolved (5) HLD (hyperlipidemia) Status: Chronic Discharge Plan - Patient Discharge Instructions ACTIVITY: Continue current activity DIET: continue same diet Patient Instructions: High Blood Pressure, Heart-Healthy Diet, DI for Cardiac Catheterization, DI for Surgical Site Infection, DI for Chest Pain, DI for Coronary Artery Disease - Follow up Plan Follow up with: Max Hughes MD [Primary Care Provider] - 01/22/19 Disposition: Home, Self-Detention Medications: Home Medications Medication Instructions Recorded Confirmed Type aspirin 81 mg tablet,delayed 81 mg PO DAILY 12/17/17 01/17/19 History release bisoprolol 2.5 1 tab PO DAILY 12/17/17 01/17/19 History mg-hydrochlorothiazide 6.25 mg tablet clopidogrel 75 mg tablet 75 mg PO DAILY 12/17/17 01/17/19 History nitroglycerin 0.4 mg sublingual 0.4 mg SUBLINGUAL Q5M PRN 12/17/17 01/17/19 History tablet pantoprazole 40 mg tablet,delayed 40 mg PO DAILY 12/17/17 01/17/19 History release calcium carbonate 500 mg (1,250 1 tab PO DAILY tab 05/14/18 01/17/19 History mg)-vitamin D3 400 unit tablet Alendronate Sodium [Alendronate 35 mg PO WEEKLY 01/17/19 01/17/19 History 35mg Tablet] Atorvastatin Calcium [Atorvastatin 20 mg PO HS 01/17/19 01/17/19 History 20mg Tab] Ezetimibe 10 mg PO DAILY 01/17/19 01/17/19 History Lisinopril [Lisinopril 20mg Tab] 20 mg PO DAILY 01/17/19 01/17/19 History Rosuvastatin Calcium [Crestor] 5 mg PO DAILY #30 tablet 01/17/19 Rx Prescriptions/Medication Reconciliation: New Rosuvastatin Calcium [Crestor] 5 mg PO DAILY #30 tablet Continue bisoprolol 2.5 mg-hydrochlorothiazide 6.25 mg tablet 1 tab PO DAILY clopidogrel 75 mg tablet 75 mg PO DAILY nitroglycerin 0.4 mg sublingual tablet 0.4 mg SUBLINGUAL Q5M PRN PRN Reason: Angina pantoprazole 40 mg tablet,delayed release 40 mg PO DAILY calcium carbonate 500 mg (1,250 mg)-vitamin D3 400 unit tablet 1 tab PO DAILY tab aspirin 81 mg tablet,delayed release 81 mg PO DAILY Lisinopril [Lisinopril 20mg Tab] 20 mg PO DAILY Ezetimibe 10 mg PO DAILY Alendronate Sodium [Alendronate 35mg Tablet] 35 mg PO WEEKLY Discontinued Atorvastatin Calcium [Atorvastatin 20mg Tab] 20 mg PO HS
== END 2019-01-17 15:15 | disposition home or self-care (01) ==
LOC: ER 00:31 → 2ND 00:31
PROVIDERS: ADMIT Family Medicine; ATTEND Internal Medicine Adolescent Medicine
DX: I10 Essential (primary) hypertension; E78.5 Hyperlipidemia, unspecified; Z79.82 Long term (current) use of aspirin; Z88.1 Allergy status to other antibiotic agents; Z88.8 Allergy status to other drugs, medicaments and biological substances; I25.110 Atherosclerotic heart disease of native coronary artery with unstable angina pectoris; Z82.49 Family history of ischemic heart disease and other diseases of the circulatory system; E03.9 Hypothyroidism, unspecified; Z79.899 Other long term (current) drug therapy
CPT/HCPCS: 36415; 71010; 71045; 80048; 80061; 83735; 84484; 85025; 85347; 92928; 93005; 93306; 93458; 93571; 99152; 99153; 99284; C1725; C1769; C1876; C9600; G0378; J0153; J1644; Q9966

== ENCOUNTER → 2019-01-29 10:30 | Outpatient (CLI) | payer MEDICARE, SELFPAY ==
[2019-01-29 11:08] LABS: Hematocrit 37.7 % (37.0-47.0); Hemoglobin 12.2 g/dL (12.2-16.2)
[2019-01-29 12:31] LABS: Blood Urea Nitrogen 18 mg/dL (7-18); Creatinine,Serum 0.98 mg/dL (0.55-1.02); Estimated Glomerular Filt Rate 55 ml/min (>60); GFR (African American) 66 ML/MIN (>60)
== END ==
PROVIDERS: Visit Provider Internal Medicine
DX: Z95.5 Presence of coronary angioplasty implant and graft (principal); Z51.81 Encounter for therapeutic drug level monitoring; Z79.01 Long term (current) use of anticoagulants
CPT/HCPCS: 36415; 82565; 84520; 85014; 85018

== ENCOUNTER → 2019-02-18 10:36 | Outpatient (POV) | payer MEDICARE, SELFPAY | PROVIDERS: Visit Provider Dermatology | DX: Z00.00 Encounter for general adult medical examination without abnormal findings (principal) ==

== ENCOUNTER → 2019-02-20 09:07 | Outpatient (CLI) | payer MEDICARE, SELFPAY ==
[2019-02-20 12:04] LABS: Alanine Aminotransferase 27 U/L (12-78); Albumin Level 3.7 gm/dL (3.4-5.0); Alkaline Phosphatase 79 U/L (46-116); Anion Gap 13.4 mEq/L (5-15); Aspartate Amino Transferase 24 U/L (15-37); Bilirubin,Direct 0.1 mg/dL (0.0-0.2); Bilirubin,Indirect 0.4 mg/dL (0.0-0.9); Bilirubin,Total 0.5 mg/dL (0.2-1.0); Blood Urea Nitrogen 24 mg/dL (7-18); Calcium 8.9 mg/dL (8.5-10.1); Carbon Dioxide 30 mmol/L (21.0-32.0); Chloride 104 mmol/L (98-107); Chol/HDL Ratio 2.5 (1-3.5); Cholesterol 163 mg/dL (140-200); Creatinine,Serum 0.98 mg/dL (0.55-1.02); Estimated Glomerular Filt Rate 55 ml/min (>60); GFR (African American) 66 ML/MIN (>60); Glucose 98 mg/dL (74-106); HDL Cholesterol 64 mg/dL (29-89); LDL Cholesterol 70 mg/dL (0-130); Potassium 4.4 mmoL/L (3.5-5.1); Sodium 143 mmol/L (136-145); Total Protein,Serum 6.5 gm/dL (6.4-8.2); Triglycerides 144 mg/dL (30-200); VLDL Cholesterol 29 mg/dL (0-40)
== END ==
PROVIDERS: Visit Provider Physician Assistant
DX: I10 Essential (primary) hypertension; I25.10 Atherosclerotic heart disease of native coronary artery without angina pectoris; I45.10 Unspecified right bundle-branch block; Z95.5 Presence of coronary angioplasty implant and graft; E78.49 Other hyperlipidemia
CPT/HCPCS: 36415; 80048; 80061; 80076

== ENCOUNTER → 2019-03-25 11:04 | Outpatient (POV) | payer MEDICARE, SELFPAY | PROVIDERS: Visit Provider Dermatology | DX: Z00.00 Encounter for general adult medical examination without abnormal findings (principal) ==

== ENCOUNTER → 2019-07-22 15:01 | Outpatient (POV) | payer MEDICARE, SELFPAY | PROVIDERS: Visit Provider Dermatology | DX: Z00.00 Encounter for general adult medical examination without abnormal findings (principal) ==

== ENCOUNTER → 2019-10-21 09:53 | Outpatient (CLI) | payer MEDICARE, SELFPAY ==
--- NOTE | 2019-10-21 09:54 | MM_ITS ---
PROCEDURE: MM DIG SCREENING MAMM BI W/CAD CLINICAL INDICATION: SCREENING There is a history of breast cancer patient's sister. COMPARISON: [facility] DIG MAMM-SCREEN [facility] from 07/20/2014 [facility] DIG MAMM-SCREEN [facility] W/CAD from 10/19/2017 [facility] MM Dig screening mamm BI w/CAD from 10/21/2018 TECHNIQUE: Standard CC and MLO images were obtained. R2 CAD reviewed. FINDINGS: Mild to moderate scattered fibroglandular densities are seen throughout both breast most prominent in the subareolar regions. There is a mole marker on each breast. There is no new or suspicious lesion in either breast and there are no suspicious microcalcifications. IMPRESSION: Mild to moderate breast density with no suspicious lesions seen BI-RAD Category: 2 Benign Finding(s) FOLLOW-UP: 1YR 1 Year Follow-up (A letter has been sent to the patient regarding results of the study.) Dictated by: Dr. Nando Evans MD 10/22/2019 13:[address] Nando Evans MD in [place] 10/22/2019 13:57
== END ==
PROVIDERS: PCP Internal Medicine Adolescent Medicine; Visit Provider Internal Medicine Adolescent Medicine
DX: Z12.31 Encounter for screening mammogram for malignant neoplasm of breast (principal)
CPT/HCPCS: 77067

== ENCOUNTER → 2019-11-14 07:49 | Outpatient (CLI) | payer MEDICARE, SELFPAY ==
--- NOTE | 2019-11-14 07:49 | CA_ITS ---
APPROVED REPORT EXAM: Comprehensive 2D, Doppler, and color-flow Echocardiogram Clinical Laboratory Assistant: Melissa Rowan CRT Ht: 5 ft 3 in Wt: 143lbs BSA: 1.68 BP: 152/71 mmHg Indications: CAD, STENT, RBBB, HTN,HLD, MOD AI, MOD MR 2D Dimensions LVOT 1.95 cm (M/F) 1.5-2.5 M-Mode Dimensions RVDd 2.30 cm (0.9-2.6) LVDd 4.98 cm (3.5-5.7) LVDs 2.83 cm (3.5-5.7) IVSd 1.46 cm (0.6-1.1) PWd 0.97 cm (0.6-1.1) EF (Teich) 74.10% FS 43.20% EDV (Teich) 117.10 mL ESV (Teich) 30.30 mL LV Diastology E/A Ratio 3.18 Aortic Valve LVOT Max 92.00 (70-110 cm/s) LVOT VTI 21.59 cm Mitral Valve MV A Velocity 98.00 (40-130 cm/s) Left Ventricle Left atrium is mildly enlarged, left ventricle is normal size, mild concentric left ventricular hypertrophy, septum is sigmoid configuration, visually estimated ejection fraction of 55% with no regional wall motion abnormality, grade 1 diastolic dysfunction seen without tissue Doppler evidence of raise left atrial pressure. Right Ventricle Right atrium and right ventricular normal size and contractility. Aortic Valve Aortic valve is thickened and calcified leaflet continue to display good mobility, there is no aortic stenosis, there is moderate aortic insufficiency. Mitral Valve Mitral valve is grossly normal, there is mild mitral regurgitation. Tricuspid Valve Tricuspid valve is grossly normal, there is mild tricuspid regurgitation. Pulmonic Valve Pulmonic valve is poorly visualized. Great Vessels Aortic root is normal size. Pericardium No significant pericardial effusion noted. Conclusion 1. Mildly enlarged left atrium, normal left ventricular size, mild concentric left ventricular hypertrophy, visually estimated ejection fraction 55% with no regional wall motion abnormality, grade 1 diastolic dysfunction seen without tissue Doppler evidence of raise left atrial pressure. 2. Thickened and calcified aortic valve without aortic stenosis, there is moderate aortic insufficiency. 3. Mild mitral and tricuspid regurgitation. 4. No significant pericardial effusion noted. Electronically signed by : Ralph Harrington, 11/14/2019 15:04:23
== END ==
PROVIDERS: PCP Internal Medicine Adolescent Medicine; Visit Provider Physician Assistant
DX: I10 Essential (primary) hypertension; I25.10 Atherosclerotic heart disease of native coronary artery without angina pectoris; I35.1 Nonrheumatic aortic (valve) insufficiency; I45.10 Unspecified right bundle-branch block; Z95.5 Presence of coronary angioplasty implant and graft; E78.49 Other hyperlipidemia
CPT/HCPCS: 93306

== ENCOUNTER → 2019-11-21 10:24 | Outpatient (CLI) | payer MEDICARE, SELFPAY ==
--- NOTE | 2019-11-21 10:27 | XR_ITS ---
PROCEDURE: XR CHEST 2V CLINICAL HISTORY: COUGH COMPARISON: CXR CHEST(2 VIEWS-NOT PORTABLE) from 05/22/2016 [id number] XR chest portable from 01/17/2019 FINDINGS: The tortuosity of the aortic arch is stable. Size of the heart appears normal and stable. The hilar areas and pulmonary vessels are normal. The lungs are clear without infiltrates, suspicious nodules, or pleural effusions. No acute bony abnormalities. IMPRESSION: No acute findings. Dictated by: Donnell Randall 11/21/2019 11:33 Electronically signed by Donnell Randall in [place] 11/21/2019 11:33
== END ==
PROVIDERS: PCP Internal Medicine Adolescent Medicine; Visit Provider Internal Medicine Adolescent Medicine
DX: R05 Cough (principal)
CPT/HCPCS: 71046

== ENCOUNTER → 2020-06-22 13:34 | Outpatient (POV) | payer MEDICARE, SELFPAY | PROVIDERS: PCP Internal Medicine Adolescent Medicine; Visit Provider Dermatology | DX: Z00.00 Encounter for general adult medical examination without abnormal findings (principal) ==

== ENCOUNTER 2020-09-30 11:00 | Outpatient (RCR) | payer MEDICARE, SELFPAY ==
--- NOTE | 2020-09-15 15:53 | HMH.PTOPEV ---
PT Outpatient Evaluation Rehab PT Outpatient Evaluation Start: 09/15/20 15:12 Freq: Status: Active Protocol: Document 09/15/20 15:12 KAROLINA (Rec: 09/15/20 15:53 KAROLINA [id number]) Electronically Signed By Yoandy Pickard, PT 09/15/20 15:12 Outpatient Therapy Subjective History Subjective History Pt reports h/o chronic neck pain with exacerbation over the last 3 weeks. Pt reports insidious onset R sided neck pain, which is worse upon waking, and gradually improves as the day goes on. Pt reports increased stressors over the last months, 'which area likely contributing to this issue'. Chief Complaint Pain,Stiff Symptom Type Ache,Dull Symptoms Relieved By Rest/Positioning,Heat Symptoms Aggravated By Physical Activity Prior Functional Limitations None Current Functional Limitations Lifting,Housework Symptom Description Constant but Variable Level of pain today (0-10) 4 Pain scale - at its best (0-10) 4 Pain scale - at its worst (0-10) 8 Cervical Eval Palpation Cervical Muscles R CT Junction,L CT Junction,R Upper Trapezius,L Upper Trapezius Cervical/Thoracic Palpation Findings Tenderness,Trigger Point Posture Head/C-Spine Posture Sitting Position Neutral Position Head/C-Spine Posture Standing Position Neutral Position Flexibility Deficits Upper Trapezius Muscle Length (R) Moderate Tightness,(L) Moderate Tightness Scalene Group Muscle Length (R) Moderate Tightness,(L) Moderate Tightness Passive Joint Mobility Cervical PIVM Dec: R OA L OA R AA L AA R C2/3 L C2/3 R C3/4 L C3/4 R C4/5 L C4/5 R C5/6 L C5/6 R C6/7 L C6/7 R C7/T1 L C7/T1 AROM Cervical Spine Extension Active Range of 0-40 Motion (degrees) Cervical Spine Flexion Active Range of 0-30 Motion (degrees) Cervical Spine Right L
== END 2020-09-30 12:00 | disposition home or self-care (01) ==
LOC: PT 11:00
PROVIDERS: PCP Internal Medicine Adolescent Medicine; Visit Provider Internal Medicine Adolescent Medicine
DX: M54.2 Cervicalgia (principal)
CPT/HCPCS: 97010; 97014; 97035; 97110; 97163; G0283

== ENCOUNTER → 2020-11-01 10:19 | Outpatient (CLI) | payer MEDICARE, SELFPAY ==
--- NOTE | 2020-11-01 10:22 | MM_ITS ---
PROCEDURE: MM DIG SCREENING MAMM BI W/CAD Referring Doctor: Max Hughes Patient Age:79Y CLINICAL INDICATION: SCREENING 79-year-old. No hormones. No new complaints. Family history-sister with breast cancer COMPARISON: MG DIGMAMMS MAMMOGRAM SCREEN-CONTROL SYSTEMS SPECIALIST N/C from 04/03/2008 MG DIGMAMMS MAMMOGRAM SCREEN-CONTROL SYSTEMS SPECIALIST N/C from 04/30/2009 MG DMSB DIGITAL MAMM-SCREEN BILATERAL from 06/28/2011 MG DMSB DIGITAL MAMM-SCREEN BILATERAL from 07/02/2012 MG DMSB DIG MAMM-SCREEN EDGAR from 07/15/2013 MG DMSB DIG MAMM-SCREEN EDGAR from 07/20/2014 MG DMSB DIG MAMM-SCREEN EDGAR W/CAD from 10/19/2017 MG [facility]BI MM Dig screening mamm BI w/CAD from 10/21/2018 MG MM DIG SCREENING MAMM BI W/CAD from 10/21/2019 TECHNIQUE: Standard CC and MLO images were obtained. R2 CAD reviewed. Bilateral digital breast tomosynthesis included. Additional right MLO view and left axillary CC view the FINDINGS: Mild asymmetry of the breast. Overall stable appearance of the remaining areas of scattered heterogeneous breast fibroglandular elements overall appearance is similar to previous studies with no new areas of significant concern Right breast no new areas of significant concern Right breast again on the MLO view we see an area of more prominent fibroglandular elements at 12 o'clock but this is been seen on multiple previous studies dating back to 2012 and 2010. This area of density on MLO view dissipates on the CC view, and tomosynthesis image sets. Cc image shows stable appearance of areas patchy areas of density noting stable area medial right breast Left breast no new areas of significant syndrome.. Again the coarse parenchymal pattern in the retroareolar region again seen and appears longstanding, stable as do other areas of mild asymmetry; including a small area at the dense breast towards margin of film on MLO view.-(This latter area seems to fluctuate slightly through the sequence of mammograms and likely contain some small cystic elements which fluctuate its appearance) Continue recommend annual follow-up IMPRESSION: . No significant new findings. Adequate stable mammogram. Recommend bilateral follow-up in 1 year BI-RAD Category: 2 Benign Finding(s) FOLLOW-UP: 1YR 1 Year Follow-up (A letter has been sent to the patient regarding results of the study.) Dictated by: Esteban Bruce MD 11/04/2020 13:02 Esteban Bruce MD in [place] 11/04/2020 13:02
== END ==
PROVIDERS: PCP Internal Medicine Adolescent Medicine; Visit Provider Internal Medicine Adolescent Medicine
DX: Z12.31 Encounter for screening mammogram for malignant neoplasm of breast (principal)
CPT/HCPCS: 77063; 77067

== ENCOUNTER → 2021-04-27 16:15 | Outpatient (CLI) | payer MEDICARE, SELFPAY ==
--- NOTE | 2021-04-27 16:28 | XR_ITS ---
PROCEDURE: XR KNEE RT 3V CLINICAL INDICATION: ACUTE PAIN OF RT KNEE COMPARISON: No exams were available for comparison FINDINGS: No fracture or dislocation. No lytic or blastic change. There is normal mineralization. There are mild osteoarthritic changes of the medial compartment and patellofemoral joint with possible small suprapatellar effusion. Other findings:None. IMPRESSION: Mild osteoarthritis with possible small suprapatellar effusion Dictated by: Bob Pichardo MD 04/27/2021 18:20 Bob Pichardo MD in [facility] 04/27/2021 18:20
== END ==
PROVIDERS: PCP Internal Medicine Adolescent Medicine; Visit Provider Internal Medicine Adolescent Medicine
DX: M25.561 Pain in right knee (principal)
CPT/HCPCS: 73562

== ENCOUNTER → 2021-05-10 10:34 | Outpatient (POV) | payer MEDICARE, SELFPAY | PROVIDERS: Visit Provider Dermatology | DX: Z00.00 Encounter for general adult medical examination without abnormal findings (principal) ==

== ENCOUNTER → 2021-06-28 09:20 | Outpatient (CLI) | payer MEDICARE, SELFPAY ==
--- NOTE | 2021-06-28 09:33 | XR_ITS ---
PROCEDURE: XR DEXA AXIAL SKELETON CLINICAL HISTORY: OSTEOPENIA COMPARISON: CR DEXAAX XR DEXA axial skeleton from 11/08/2018 FINDINGS: The right hip BMD is 0.660 with a T-score of -1.7. The left hip BMD is 0.745 with a T-score of -1.6. The lumbar spine BMD is 1.219 with a T-score of 1.6. Previously the lowest density was in the left femoral neck with a T-score -1.7 IMPRESSION: This patient is considered osteopenic according to the World Health Organization criteria. Bone density is between 10 and 25 percent below young normal. Fracture risk is moderate. Treatment is advised. Overall not significantly changed Based on these results a follow-up exam is recommended in 2 year. Dictated by: Bob Pichardo MD 06/29/2021 08:04 Bob Pichardo MD in [facility] 06/29/2021 08:04
[2021-06-28 13:40] LABS: Alanine Aminotransferase 15 U/L (12-78); Alkaline Phosphatase 107 U/L (38-126); Aspartate Amino Transferase 28 U/L (14-36); Bilirubin,Direct 0.3 mg/dl (0.0-0.4); Bilirubin,Total 0.3 mg/dl (0.2-1.3); Chol/HDL Ratio 3.2 (1-3.5); Cholesterol 150 mg/dl (140-200); HDL Cholesterol 47 mg/dl (40-60); Total Protein,Serum 6.4 g/dl (6.3-8.2); Triglycerides 236 mg/dl (30-150); VLDL Cholesterol 47 mg/dL (0-40)
[2021-06-28 13:51] LABS: Direct LDL Cholesterol 72.88 mg/dL (100-129)
== END ==
PROVIDERS: Urology; PCP Internal Medicine Adolescent Medicine; Visit Provider Internal Medicine Adolescent Medicine
DX: I10 Essential (primary) hypertension (principal); I25.118 Atherosclerotic heart disease of native coronary artery with other forms of angina pectoris; I45.10 Unspecified right bundle-branch block; I48.0 Paroxysmal atrial fibrillation; Z95.5 Presence of coronary angioplasty implant and graft; M85.89 Other specified disorders of bone density and structure, multiple sites
CPT/HCPCS: 36415; 77080; 80061; 80076

== ENCOUNTER → 2021-07-25 12:37 | Outpatient (CLI) | payer MEDICARE, SELFPAY ==
--- NOTE | 2021-07-25 12:38 | CA_ITS ---
APPROVED REPORT EXAM: Comprehensive 2D, Doppler, and color-flow Echocardiogram Composing Machine Operator: Holly Mcadams, RCS, RVS Ht: 5 ft 3 in Wt: 148lbs BSA: 1.70 BP: 141/68 mmHg Indications: PAF, murmurs, MR, AI, CAD 2D Dimensions IVSd 0.89 cm LVEF (Visual) 66.10 % PWd 0.93 cm LA Volume 44.60 mL LVDd 4.60 cm LA Volume Index 26.20 mL/m2 (M/F) 16-34 LVDs 2.93 cm Left Atrium 3.19 cm LVOT 1.91 cm (M/F) 1.5-2.5 M-Mode Dimensions RVDd 2.28 cm (0.9-2.6) LA Diam 2.79 cm (1.9-4.0) LVDd 4.96 cm (3.5-5.7) Ao Diam 2.79 cm (2.0-3.7) LVDs 3.19 cm (3.5-5.7) IVSd 0.94 cm (0.6-1.1) PWd 0.87 cm (0.6-1.1) EF (Teich) 65.00% EPSs 0.77 cm FS 35.70% EDV (Teich) 116.10 mL TAPSE 1.49 (<1.7) ESV (Teich) 40.60 mL LV Diastology E Decel Time 290.00 (160-240 msec) E/A Ratio 0.65 MED E' 7.70 (< 7 cm/sec) MED A' 12.10 cm/s E'/MED E' Ratio 9.68 (>14) LAT E' 6.20 (<10 cm/sec) LAT A' 12.20 cm/s E/LAT E' Ratio 12.02 (>14) Pulm Vein s 35.00 cm/sec Aortic Valve LVOT Max 112.00 (70-110 cm/s) LVOT VTI 25.30 cm AoV Peak Billy. 153.00 (50-130 cm/s) AI PHT 437.00 ms AO Peak GR. 9.30 mmHg AO Mean GR. 4.80 (<5 mmHg) AO VTI 33.97 (18-25 cm) SLADE (VTI) 2.13 (2.5-4.5 cm2) Mitral Valve MV E Max Billy. 74.00 (40-130 cm/s) MV A Velocity 115.00 (40-130 cm/s) E/A Ratio 0.65 MV Decel. Time 290.00 (160-240 ms) MV PHT 85.00 ms Pulmonary Valve PV Peak Velocity 91.00 (50-150 cm/s) Tricuspid Valve TR P. Velocity 204.00 cm/s RAP Estimate 10.00 mmHg RVSP 26.70 mmHg Left Ventricle Left atrium is moderately enlarged, left ventricle is normal size, mild concentric left ventricular hypertrophy, visually estimated ejection fraction 55% with no regional wall motion abnormality, grade 1 diastolic dysfunction seen without tissue Doppler evidence of raise left atrial pressure. Right Ventricle Right atrium and right ventricle are normal size and contractility. Aortic Valve Aortic valve is minimally thickened and fibrosed, there is no aortic stenosis, there is moderate aortic insufficiency. Mitral Valve Mitral valve leaflets are minimally thickened, there is mild mitral regurgitation. Tricuspid Valve Tricuspid valve grossly normal, there is mild tricuspid regurgitation, tricuspid regurgitation jet velocity is inadequate for calculation of the right ventricular systolic pressure. Pulmonic Valve Pulmonic valve is poorly visualized. Great Vessels Aortic root is normal size. Pericardium No significant pericardial effusion noted. Conclusion 1. Moderately enlarged left atrium, normal left ventricular size, mild concentric left ventricular hypertrophy, visually estimated ejection fraction 55% with no regional wall motion abnormality, grade 1 diastolic dysfunction seen without tissue Doppler evidence of raise left atrial pressure. 2. Moderate aortic, mild mitral and tricuspid regurgitation. 3. No significant pericardial effusion noted. Electronically signed by : Ralph Harrington MD 07/26/2021 06:46:08
== END ==
PROVIDERS: PCP Internal Medicine Adolescent Medicine; Visit Provider Urology
DX: I10 Essential (primary) hypertension; I25.118 Atherosclerotic heart disease of native coronary artery with other forms of angina pectoris; I34.0 Nonrheumatic mitral (valve) insufficiency; I35.1 Nonrheumatic aortic (valve) insufficiency; I45.10 Unspecified right bundle-branch block; I48.0 Paroxysmal atrial fibrillation; R53.83 Other fatigue; Z95.5 Presence of coronary angioplasty implant and graft; E78.49 Other hyperlipidemia
CPT/HCPCS: 93306

== ENCOUNTER → 2021-12-14 13:49 | Outpatient (CLI) | payer MEDICARE, SELFPAY | PROVIDERS: Visit Provider Student in an Organized Health Care Education/Training Program | DX: J32.9 Chronic sinusitis, unspecified (principal) | CPT/HCPCS: 87070 ==

== ENCOUNTER → 2022-01-11 11:37 | Outpatient (CLI) | payer MEDICARE, SELFPAY | PROVIDERS: Visit Provider Student in an Organized Health Care Education/Training Program | DX: J32.9 Chronic sinusitis, unspecified (principal) | CPT/HCPCS: 87070 ==

== ENCOUNTER → 2022-01-13 14:53 | Outpatient (CLI) | payer MEDICARE, SELFPAY ==
--- NOTE | 2022-01-13 14:54 | CT_ITS ---
FINAL REPORT TECHNIQUE: Thin section axial CT images of the facial bones and sinuses were obtained without contrast. Coronal reformatted images were also obtained. This study was performed with techniques to keep radiation doses as low as reasonably achievable, (ALARA). Individualized dose reduction techniques using automated exposure control or adjustment of mA and/or kV according to the patient''''s size were employed. CLINICAL HISTORY: chronic sinusitis right side maxillary pressure. FINDINGS: There is total opacification of the right maxillary sinus. There is thickening of the right maxillary sinus wall consistent with chronic sinusitis. There is widening of the right maxillary sinus and infundibulum. Soft tissue extends to the right nasal cavity, may represent may represent an antrochoanal polyp. This could also represent chronic sinusitis with nasal polyposis. There is opacification of the right anterior ethmoid and middle sinuses. The frontal sinuses are aplastic. IMPRESSION: Chronic sinusitis as above. Findings may represent antrochoanal polyp vs chronic right maxillary sinusitis and nasal polyposis. Reviewed, Interpreted and Dictated by Omid Mccauley III, MD Transcribed by Dora Elder Authenticated by Omid Mccauley III, MD on 01/13/2022 04:13:11 PM [facility]
== END ==
PROVIDERS: PCP Internal Medicine Adolescent Medicine; Visit Provider Student in an Organized Health Care Education/Training Program
DX: J32.9 Chronic sinusitis, unspecified (principal)
CPT/HCPCS: 70486

== ENCOUNTER → 2022-02-01 10:19 | Outpatient (CLI) | payer MEDICARE, SELFPAY ==
--- NOTE | 2022-02-01 10:22 | MM_ITS ---
PROCEDURE INFORMATION: Exam: MG Bilateral Screening 3D Mammography Exam date and time: 02/01/2022 10:22 AM Age: 81 years old Clinical indication: Encounter for screening mammogram for malignant neoplasm of breast; Additional info: Screening, tenderness above right breast, off and on, no tenderness today . Family history of breast carcinoma. TECHNIQUE: Imaging protocol: Bilateral Screening tomosynthesis and 2D mammography including computer-aided detection (CAD) when performed. COMPARISON: 1. MG MM DIG SCREENING MAMM BI W/CAD 11/01/2020 10:25 AM 2. MG MM DIG SCREENING MAMM BI W/CAD 10/21/2019 10:04 AM 3. MG SCBI MM Dig screening mamm BI w/CAD 10/21/2018 10:06 AM FINDINGS: MAMMOGRAPHY: Breast composition: The breasts are heterogeneously dense, which may obscure small masses. Mass: No suspicious masses. Architectural distortion: No suspicious distortion. Calcifications: No suspicious calcifications. Asymmetric density: None. Skin thickening: None. Axillary adenopathy: None. IMPRESSION: No mammographic evidence of malignancy. Annual screening is recommended unless otherwise clinically indicated. ASSESSMENT: BI-RADS Category 1: Negative
== END ==
PROVIDERS: PCP Internal Medicine Adolescent Medicine; Visit Provider Internal Medicine Adolescent Medicine
DX: Z12.31 Encounter for screening mammogram for malignant neoplasm of breast (principal)
CPT/HCPCS: 77063; 77067

== ENCOUNTER → 2022-02-11 09:57 | Outpatient (CLI) | payer MEDICARE, SELFPAY ==
[2022-02-11 11:00] LABS: Basophils # 0.1 K/mm3 (0-0.2); Basophils % 1.5 % (0.1-2.0); Eosinophils # 0.3 K/mm3 (0.0-0.4); Eosinophils % 4.7 % (0.1-12.0); Hematocrit 40.6 % (37.0-47.0); Lymphocytes # 3.2 K/mm3 (0.7-4.5); Lymphocytes % 44.7 % (10-50); Mean Corpuscular HGB Conc 31.9 g/dL (31.8-35.4); Mean Corpuscular Volume 90.9 fl (81-99); Monocytes # 0.4 K/mm3 (0.1-1.0); Monocytes % 6.1 % (1.7-9.3); Neutrophils # 3.1 K/mm3 (1.8-7.8); Platelet Count 314 K/mm3 (142-424); Red Blood Count 4.46 M/mm3 (4.20-5.40); Red Cell Distribution Width 14.7 % (11.5-17.5); White Blood Count 7.1 K/mm3 (4.8-10.8)
--- NOTE | 2022-02-11 11:00 | ECG_ITS ---
APPROVED REPORT Exam: Resting ECG HR:60 bpm ECG Measurements Heart Rate 60 AXES NJ 150 P 2 QRSd 112 QRS 35 QT 452 T 36 QTc 454 Conclusion SINUS RHYTHM LOW QRS VOLTAGE IN PRECORDIAL LEADS [QRS DEFLECTION < 1.0 mV IN CHEST LEADS] INCOMPLETE RIGHT BUNDLE BRANCH BLOCK [90+ ms QRS DURATION, TERMINAL R IN V1/V2, 40+ ms S IN I/aVL/V4/V5/V6] BORDERLINE ECG UNCONFIRMED REPORT Electronically signed by : Max Hughes MD 02/12/2022 20:17:22
[2022-02-11 11:58] LABS: Anion Gap 9.3 mEq/L (5-15); Blood Urea Nitrogen 22 mg/dl (7-17); Calcium 9.4 mg/dl (8.4-10.2); Carbon Dioxide 32 mmol/L (22.0-30.0); Chloride 104 mmol/L (98-107); Estimated Glomerular Filt Rate 60 ml/min (>60); GFR (African American) 73 ML/MIN (>60); Glucose 97 mg/dl (74-100); Potassium 5.3 mmoL/L (3.5-5.1); Sodium 140 mmol/L (136-145)
== END ==
PROVIDERS: PCP Internal Medicine Adolescent Medicine; Visit Provider Internal Medicine Adolescent Medicine
DX: Z01.818 Encounter for other preprocedural examination (principal); Z11.52 Encounter for screening for COVID-19; J32.9 Chronic sinusitis, unspecified
CPT/HCPCS: 36415; 80048; 85025; 93005; C9803; U0003; U0005

== ENCOUNTER 2022-02-14 07:07 | Day surgery (SDC) | payer MEDICARE, SELFPAY ==
[2022-02-13 10:13] VITALS: BMI 26.5
[2022-02-14] VITALS (9 sets, daily range): BP systolic 125–159; BP diastolic 59–95; PULSE 57–86; RESP 16–18; TEMP 36.1–36.7; O2SAT 93–98
--- NOTE | 2022-02-14 08:25 | P.PN_ITS ---
[facility] Anesthesia Checklist - Patient Identification Patient Identification: Arm Band - Structural Data Admitted From: Home Planned Operative Procedure/s: R. maxillary and total ethmoidectomy Consent for Planned Operative Procedure(s) Verified: Yes - NPO Status Verified Time NPO: 00:00 - Additional verifications Anesthesia Reactions: No - Airway Assessment C-Spine Mobility Assessed: Yes TMJ Mobility Assessed: Yes Dentition: Good Dentition (Patient understands the risks of dental damage. Wishes to proceed.) - Neurological Assessment Level of Consciousness: Awake Hx Seizures: No Numbness or tingling in extremities: No - Anesthesia Plan Anesthesia Risk discussed: Yes Anesthesia Plan: Verified ASA Class: III Anesthesia Type: General [facility] History I have reviewed the patient's past medical history: Yes Medical History: Reports:: Atrial Fibrillation, Cancer (face), Coronary Artery Disease, Hyperlipidemia, Hypertension Denies:: Diabetes Mellitus Type 1, Diabetes Mellitus Type 2, Internal Pacem jn, Lung Disease, MRSA, Seizures *Have you ever received a pneumonia vaccine?: No *Have you received a flu vaccine this season?: Yes Anesthesia experience/problems:: None Other Surgeries: Yes: Cardiac Catheterization, Cardiac Surgery (stents placed), Coronary Stent, Hysterectomy-Total, Hysterectomy-Partial. No: Pacemaker Amputation: No Fractures: No - *Social History Last grade of school completed: Some college Smoking Status: Never smoker Alcohol Intake: never Substance Use Type: denies use *Occupational Status:: retired Housing: house Household Members: children *Travel in the last 8 weeks: None Family Hx:: Cancer
--- NOTE | 2022-02-14 10:31 | HMH.OPNOTE ---
Date of procedure: 02/14/22 Pre-op Diagnosis:: right maxillary and ethmoid sinusitis Post-op Diagnosis:: same Procedure performed:: right maxillary, ethmoid functional endoscopic sinus surgery with tissue removal extracranial stereotactic image guidance Surgeon:: Colt Pitt MD RAILROAD DESIGN CONSULTANT:: Viral Uriostegui Anesthesia: GETA Estimated blood loss (mL): 25 Operative findings:: allergic fungal contents and purulance in right maxillary and ethmoid sinus Operative note:: Patient was brought to the OR, laid in a supine position, general anesthesia was induced. The extracranial image guidance system was set up and confirmed to be working appropriately. Afrin-soaked pledgets were used to decongest the patient's nares. On the right side using the 0 degree scope is able to identify what appeared to be allergic fungal mucin in her maxillary and ethmoid sinus. Her uncinate on the right was already reflected forward from all the debris. The uncinate was taken down with the backbiter and microdebrider. I then thoroughly suctioned and irrigated out the thick debris from the sinuses. Her maxillary sinus was further opened up with a microdebrider. I then performed a ethmoidectomy with a series of the debrider, Kerrisons, and Kaleb cuts. There was significant mucosal inflamation throughout her ethmoids, particularly in the anterior aspect. Her nose and mouth were then thoroughly suctioned and irrigated out. Hemostasis achieved with afrin pledgets. Ciprodex-soaked nova pack was then placed in the right middle meatus. She was then turned back over to anesthesia to be awoken. Condition: stable Disposition: PACU Specimens:: sinus contents Complications:: none
--- NOTE | 2022-02-14 10:41 | P.PN_ITS ---
[facility] Anesthesia Record Part I Intake, IV Amount: 1,200 Estimated blood loss (mL): 10 Urine output (mL): 0 Blood Pressure: 125/75 SaO2: 93 Pulse Rate: 86 Respiratory Rate: 16 Temperature: 97 F Patient is:: Drowsy, Stable Stable to PACU at:: 10:35
--- NOTE | 2022-02-14 13:21 | P.PN_ITS ---
[facility] Anesthesia Record Part II Discharge Time: 11:05 Destination: Surgical Day Care (OP Surgery) PACU nurse assessment reviewed?: Yes Patient Condition:: Good Anesthesia Complications:: None Swallowing reflex intact?: Yes Cyanosis?: No Blood Pressure: 135/66 Pulse Rate: 72 Temperature: 97 F Mental Status: Alert & Oriented Pain level:: 0 Nausea and/or vomitting:: None Intake, IV Amount: 0
--- NOTE | 2022-02-14 14:56 | SUR.PHASEI ---
1040- @ . No new orders received. called pt to give an update on status.
== END 2022-02-14 11:35 | disposition home or self-care (01) ==
LOC: OR 07:09
PROVIDERS: PCP Internal Medicine Adolescent Medicine; Visit Provider Student in an Organized Health Care Education/Training Program
DX: J32.0 Chronic maxillary sinusitis; J32.2 Chronic ethmoidal sinusitis; I48.91 Unspecified atrial fibrillation; Z85.89 Personal history of malignant neoplasm of other organs and systems; I25.10 Atherosclerotic heart disease of native coronary artery without angina pectoris; E78.5 Hyperlipidemia, unspecified; I10 Essential (primary) hypertension; Z80.9 Family history of malignant neoplasm, unspecified; Z79.82 Long term (current) use of aspirin; Z79.899 Other long term (current) drug therapy
CPT/HCPCS: 31254; 61782; 88305; 88312; 88313; 96374; J2405; J2710

== ENCOUNTER 2023-01-17 17:08 | Emergency (ER) | payer MEDICARE, SELFPAY ==
--- NOTE | 2023-01-17 17:20 | ECG_ITS ---
APPROVED REPORT Exam: Resting ECG HR:77 bpm ECG Measurements Heart Rate 77 AXES MI 178 P 61 QRSd 89 QRS 34 QT 390 T 54 QTc 422 Conclusion SINUS RHYTHM POSSIBLE RIGHT VENTRICULAR CONDUCTION DELAY [RSR (QR) IN V1/V2] BORDERLINE ECG UNCONFIRMED REPORT Electronically signed by : Max Hughes MD 01/17/2023 20:45:21
[2023-01-17 17:26] VITALS: BP 179/88; PULSE 82; RESP 17; TEMP 37.1; O2SAT 97; BMI 27.1
[2023-01-17 17:30] VITALS: BP 188/94; PULSE 79; O2SAT 97
--- NOTE | 2023-01-17 17:30 | CT_ITS ---
PROCEDURE INFORMATION: Exam: CT Head Without Contrast Exam date and time: 01/17/2023 5:53 PM Age: 82 years old Clinical indication: Mass, lump, or localized swelling; Head or scalp; Patient HX: PT states she found a large lump on her head just left to her posterior fontanelle. Nkt; Additional info: Injury TECHNIQUE: Imaging protocol: Computed tomography of the head without contrast. Radiation optimization: All CT scans at this facility use at least one of these dose optimization techniques: automated exposure control; mA and/or kV adjustment per patient size (includes targeted exams where dose is matched to clinical indication); or iterative reconstruction. REPORTING DATA: Count of CT and Cardiac NM exams in prior 12 months: This patient has received 0 known CTs and 0 known cardiac nuclear medicine studies in the 12 months prior to the current study. COMPARISON: [facility] MRI-BRAIN W/WO 06/19/2017 8:51 AM FINDINGS: Brain: Moderate diffuse cerebral atrophy is consistent with this patient's age. The visualized basilar cisterns are patent. There is moderate heterogeneity and patchy areas of bilateral decreased attenuation of the white matter consistent with chronic white matter ischemic change. The cortical/white matter interfaces are preserved throughout the brain. There is no evidence of acute hemorrhage within the brain parenchyma or the subarachnoid space. There is no evidence of mass, mass effect or midline shift. Cerebral ventricles: The ventricular system demonstrates moderate diffuse compensatory enlargement. Paranasal sinuses: Right medial maxillary antrostomy is present. There is cortical thickening involving the right maxillary sinus consistent with sequela of chronic sinusitis. Remaining paranasal sinuses are clear. Mastoid air cells: Minimal opacification involves a few inferior right maxillary air cells. Visualized mastoid air cells are otherwise well aerated. Orbital cavities: The orbits are normal. Dental: Dental amalgam artifact limits evaluation of adjacent structures. Bones/joints: There is no evidence of acute fracture. Soft tissues: There is a somewhat lobular soft tissue abnormality involving the left posterolateral parietal scalp soft tissues measuring approximately 2.1 x 1.5 by 2.5 cm. There is slightly decreased attenuation internally which could reflect a small amount of fluid. There is also adjacent more prominent soft tissue thickening measuring approximately 6.0 by 0.6 by 5.3 cm. There are a few adjacent somewhat tubular densities which may reflect prominent blood vessels. There is very mild perilesional fat stranding suggesting edema/inflammation. Correlate clinically. There is an area of nonspecific soft tissue skin thickening seen involving the right lateral scalp soft tissues of the right posterior parietal region. This is best seen on series 3, image 43 and measures approximately 17 x 14 by 4 mm. Correlate clinically. No additional soft tissue abnormalities are identified. IMPRESSION: 1. No acute posttraumatic intracranial abnormality. 2. Chronic findings as described. 3. Somewhat lobular soft tissue abnormality involving the left posterolateral parietal scalp soft tissues measuring approximately 2.1 x 1.5 by 2.5 cm and adjacent prominent broad soft tissue thickening measuring approximately 6.0 by 0.6 by 5.3 cm. A specific histologic diagnosis cannot be rendered and clinical correlation is required. Differential includes inflammatory/infectious, traumatic and neoplastic processes. This is not definitively seen on prior MR brain dated 06/19/2017. 4. Area of nonspecific soft tissu
[2023-01-17 17:40] LABS: Basophils # 0.1 K/mm3 (0-0.2); Basophils % 1.1 % (0.1-2.0); Eosinophils # 0.3 K/mm3 (0.0-0.4); Eosinophils % 2.8 % (0.1-12.0); Hematocrit 43.3 % (37.0-47.0); Hemoglobin 13.8 g/dL (12.2-16.2); Lymphocytes # 3.3 K/mm3 (0.7-4.5); Lymphocytes % 30.4 % (10-50); Mean Corpuscular HGB Conc 31.8 g/dL (31.8-35.4); Mean Corpuscular Volume 87.9 fl (81-99); Monocytes # 0.6 K/mm3 (0.1-1.0); Monocytes % 5.9 % (1.7-9.3); Neutrophils # 6.5 K/mm3 (1.8-7.8); Neutrophils % 59.8 % (37.0-80.0); Platelet Count 318 K/mm3 (142-424); Red Blood Count 4.93 M/mm3 (4.20-5.40); White Blood Count 10.8 K/mm3 (4.8-10.8)
--- NOTE | 2023-01-17 17:50 | PC.NURSE ---
PT TO CT
[2023-01-17 17:51] LABS: Chloride 104 mmol/L (98-107); Sodium 139 mmol/L (136-145)
[2023-01-17 17:52] LABS: Potassium 4.3 mmoL/L (3.5-5.1)
[2023-01-17 17:54] LABS: Alanine Aminotransferase 22 U/L (12-78); Alkaline Phosphatase 87 U/L (38-126); Aspartate Amino Transferase 40 U/L (14-36); Bilirubin,Total 0.6 mg/dl (0.2-1.3); Blood Urea Nitrogen 17 mg/dl (7-17); Creatinine Clearance Estimated 45 mL/min (50-200); Estimated Glomerular Filt Rate 60 ml/min (>60); GFR (African American) 72 ML/MIN (>60)
[2023-01-17 17:55] LABS: Albumin Level 4.5 g/dl (3.5-5.0); Albumin/Globulin Ratio 1.6 (1.1-1.8); Anion Gap 7.3 mEq/L (5-15); Calcium 9.2 mg/dl (8.4-10.2); Carbon Dioxide 32 mmol/L (22.0-30.0); Globulin 2.9 g/dL (1.3-3.2); Glucose 113 mg/dl (74-100); Total Protein,Serum 7.4 g/dl (6.3-8.2)
--- NOTE | 2023-01-17 19:37 | HMH.EDGENADL ---
Discharge Plan Disposition Patient Disposition: Home, Self-Care Condition: Good Prescriptions Prescriptions: No Action aspirin [Adult Low Dose Aspirin] 81 mg tablet,delayed release (DR/EC) 81 mg PO DAILY pantoprazole 40 mg tablet,delayed release (DR/EC) 40 mg PO DAILY calcium carbonate-vitamin D3 [Calcium 500 With D] 500 mg(1,250mg) -400 unit tablet 1 tab PO DAILY nitroglycerin 0.4 mg tablet, sublingual 0.4 mg SUBLINGUAL Q5M PRN (Reason: Angina) Qty: 25 3RF lisinopril 20 MG tablet 20 mg PO DAILY ezetimibe 10 MG tablet 10 mg PO DAILY rosuvastatin 5 MG tablet 5 mg PO DAILY Referrals Follow up/Referrals: Max Hughes MD [Primary Care Provider] - See instructions Activity Restrictions/Add. Instructions Additional Instructions/Restrictions: Ice 20 minutes 4-5 times a day to scalp hematoma for 3 days. Tylenol as needed for pain. Follow-up with primary care provider next week for recheck. Additional instructions for HEAD INJURY: See your physician as soon as possible for further evaluation. Return immediately if severe headache, vomiting, problems with vision or speech, numbness or weakness of the extremities, or severe neck pain. Clinical Impressions Clinical Impression: Concussion, Hematoma of scalp Instructions Patient Instructions: DI for Concussion, DI for Hematoma (Bruise) Discharge ED Provider: Neo Martinez General Adult HPI General Chief complaint: Head Injury Stated complaint: pain in back of head, no inj, confused Time Seen by Provider: 01/17/23 19:37 Mode of Arrival: Wheelchair Limitations: No Limitations Description of Symptoms (Recalled from ER Triage Doc. by RN): PT REPORTS SUDDEN HEADACHE THAT BEGAN ABOUT 1 HOUR AGO, PT DENIES INJURY. UPON PALPATION GOLF BALL SIZE HEMATOMA NOTED. PT CANNOT RECALL ANY INJURY. DENIES VISUAL DISTURBANCE. NO OTHER PAIN History of Present Illness HPI narrative: The patient arrived complaining of a headache and a bump on her head, but did not at that time recall any trauma. However since then she says her memory is beginning to come back and now she recalls walking up 3 steps at home carrying some items and believes that she lost her balance and hit the back of her head on a stone fireplace in the living room. She thinks she must of lost consciousness. She complains of headache where she has a lump on her head, but denies other current complaints. No neck pain. No nausea or vomiting. No visual disturbance. No numbness or weakness of the extremities. No injury to any other part of her body including hips or wrists. She says that she is on some sort of blood thinner but cannot recall the name. I reviewed her medications and the only antiplatelet or anticoagulant agent I see is aspirin. Related Data Home Medications Medication Instructions Recorded Confirmed aspirin 81 mg tablet,delayed 81 mg PO DAILY Cardiac Health 12/17/17 01/01/23 release (Adult Low Dose Aspirin) pantoprazole 40 mg tablet,delayed 40 mg PO DAILY GERD 12/17/17 01/01/23 release calcium carbonate 500 mg-vitamin 1 tab PO DAILY Vitamin 05/14/18 01/01/23 D3 10 mcg (400 unit) tablet (Calcium 500 With D) ezetimibe 10 mg tablet 10 mg PO DAILY Cholesterol 01/17/19 01/01/23 lisinopril 20 mg tablet 20 mg PO DAILY High blood pressure 01/17/19 01/01/23 rosuvastatin 5 mg tablet 5 mg PO DAILY Cholesterol 05/20/19 01/01/23 Previous Rx's Medication Instructions Recorded nitroglycerin 0.4 mg sublingual 0.4 mg sublingual Q5M PRN Angina 06/28/20 tablet #25 tabs Allergies Allergy/AdvReac Type Severity Reaction Status Date / Time azithromycin Allergy Unknown Verified 01/01/23 13:14 [facility] Disclaimer: The information contained in this section may have been updated after the patient was seen, as this information can be updated by other users. Medical History Fatigue Moderate aortic
--- NOTE | 2023-01-17 19:55 | PC.NURSE ---
Rounded on patient; pt and family member do not need anything at this time; call light within reach will continue to monitor
[2023-01-17 20:02] VITALS: BP 125/73; PULSE 71; RESP 17; TEMP 36.6; O2SAT 97
== END 2023-01-17 20:10 | disposition home or self-care (01) ==
PROVIDERS: Emergency Provider Emergency Medicine; PCP Internal Medicine Adolescent Medicine
DX: S06.0X0A Concussion without loss of consciousness, initial encounter (principal); S00.03XA Contusion of scalp, initial encounter; R53.83 Other fatigue; I48.0 Paroxysmal atrial fibrillation; X58.XXXA Exposure to other specified factors, initial encounter; Z86.79 Personal history of other diseases of the circulatory system
CPT/HCPCS: 70450; 80053; 85025; 93005; 99285

== ENCOUNTER → 2023-01-19 10:45 | Outpatient (CLI) | payer MEDICARE, SELFPAY ==
--- NOTE | 2023-01-19 | CA_ITS ---
APPROVED REPORT Exam: Pharmacologic Technologist: Jessica Rosado, Ht: 5 ft 3 in Wt: 138 lbs BSA: 1.65 m2 HR: 65 bpm BP: 174/72 mmHg Rhythm: NSR Medical History Medical History: HTN Medications: Lisinopril,,,,, Asa,,,,, Pantoprazole,,,,, Calcium,,,,, Nitro,,,,, RoSUVASTATIN,,,,, Cardiac Risk Factors: HTN Stress Test Details Test: LEXISCAN HR Resting HR: 74 bpm Max Heart Rate (APMHR): 137.748864 bpm Max HR Achieved: 107 bpm Target HR (85% APMHR): 116.958940 bpm % of APMHR: 78.10 Recovery HR: 95 bpm BP Resting BP: 174.0/72.0 mmHg Max BP: 174.0/72.0 mmHg Recovery BP: 149.0/81.0 mmHg ECG Resting ECG: NSR Clinical Exercise duration: 04:20 min Highest Stage Achieved: Exercise capacity: 1.0 METs Stress ECG Conclusion DURING INFUSION PATIENT HAD NO SYMPTOMS OR ARRHYTHMIAS/ECTOPY. <1.[address] SEGMENT CHANGES. NON-DIAGNOSTIC TEST Test Summary REST . . . . . . . Sitting REST . . . . . . . Sitting REST 10:15 . . 74 . 174/ 72 . . Stage 1 . . . . . . . Myoview Injected Stage 1 01:00 . . 101 . . . . Stage 2 01:00 . . 101 . 124/ 92 . . Stage 3 01:00 . . 97 . 161/ 79 . . Stage 4 01:00 . . 100 . 162/ 85 . . Stage 4 01:20 . . 96 . 143/ 71 . Stop exercise at 04:20 RECOVERY 01:00 . . 96 . . . . RECOVERY 02:00 . . 96 . 149/ 81 . . RECOVERY 02:10 . . 97 . 149/ 81 . . Electronically signed by : Ralph Harrington MD 01/19/2023 13:23:07
--- NOTE | 2023-01-19 10:52 | CA_ITS ---
APPROVED REPORT EXAM: Comprehensive 2D, Doppler, and color-flow Echocardiogram Soda Dispenser: Mine Lawrence RT(R) Ht: 5 ft 3 in Wt: 138lbs BSA: 1.65 BP: 149/72 mmHg Indications: CP, SOB, murmur, fatigue, AFIB, CAD, MR, AI 2D Dimensions LVOT 1.88 cm (M/F) 1.5-2.5 LA Volume 14.60 mL LA Volume Index 8.85 mL/m2 (M/F) 16-34 M-Mode Dimensions RVDd 2.36 cm (0.9-2.6) LA Diam 2.76 cm (1.9-4.0) LVDd 4.43 cm (3.5-5.7) Ao Diam 2.73 cm (2.0-3.7) LVDs 3.25 cm (3.5-5.7) IVSd 1.11 cm (0.6-1.1) PWd 0.86 cm (0.6-1.1) EF (Teich) 52.30% FS 26.60% EDV (Teich) 89.10 mL ESV (Teich) 42.50 mL LV Diastology E Decel Time 207.00 (160-240 msec) E/A Ratio 0.6 Aortic Valve AI PHT 475.00 ms Mitral Valve MV E Max Billy. 59.00 (40-130 cm/s) MV A Velocity 94.00 (40-130 cm/s) E/A Ratio 0.63 MV Decel. Time 207.00 (160-240 ms) MV PHT 61.00 ms Left Ventricle Left atrium is mildly enlarged, left ventricle is normal size mild concentric left ventricular hypertrophy, estimated ejection fraction 55% with no regional wall motion abnormality, grade 1 diastolic dysfunction seen without tissue Doppler evidence of raise left atrial pressure. Right Ventricle Right atrium and right ventricular normal size and contractility. Aortic Valve Aortic valve is minimally thickened and calcified without aortic stenosis, there is mild aortic insufficiency. Mitral Valve Mitral valve leaflets are minimally thickened, there is mild mitral regurgitation. Tricuspid Valve Tricuspid valve grossly normal, there is mild tricuspid regurgitation Pulmonic Valve Pulmonic valve is poorly visualized. Great Vessels Aortic root is normal size. Inferior vena cava is normal size with normal inspiratory collapse. Pericardium No significant pericardial effusion noted. Conclusion 1. Mildly enlarged left atrium, normal left ventricular size, mild concentric left ventricular hypertrophy, estimated ejection fraction 55% with no regional wall motion abnormality, grade 1 diastolic dysfunction seen without tissue Doppler evidence of raise left atrial pressure. 2. Mild aortic, mitral and tricuspid regurgitation. 3. No significant pericardial effusion noted. 4. Inferior vena cava is normal size with normal inspiratory collapse. Electronically signed by : Ralph Harrington MD 01/19/2023 16:15:12
--- NOTE | 2023-01-19 11:14 | NM_ITS ---
APPROVED REPORT Exam: Nuclear Stress Test Indication: chest pain..soa..syncope Patient Location: Outpatient Stress Tech: Sandra Rosado [place] Tech:ZANDER Villafana RT(R)(N) Ht: 5 ft 3 in Wt: 145 lbs Bra Size: 34b HR: 74 bpm BP: 174/72 mmHg BSA: 1.69 m2 TID: 1.11 BMI: 25.6 History: chest pain..soa..syncope Procedure: Patient received 0.4 mg of intravenous Lexiscan, resting heart rate 74 bpm, resting blood pressure 174/72 mmHg, with Lexiscan maximum heart rate achieved was 107 bpm which is Less than 85 % of the maximum predicted heart rate and blood pressure was 174/72 mmHg. With Lexiscan, patient denied any complaint of chest pain. The patient was unable to lay on her belly for prone images. Electrocardiogram Resting electrocardiogram shows sinus rhythm with Lexiscan there is less than 1.[address] segment depression noted from the baseline EKG. The EKG portion of the Lexiscan is nondiagnostic. Cardiac Stress and Resting SPECT Images: Cardiac Stress and Resting SPECT images were obtained using technetium 99m Myoview 32.9 mCi stress and 10.99 mCi at rest. Gated SPECT analysis of segmental wall motion and calculation of the ejection fraction also done. Cardiac stress and resting SPECT images show uniform myocardial activity without segmental perfusion abnormality, computer derived ejection fraction is 62% with no regional wall motion abnormality, right ventricle is normal size and contractility. Conclusion: 1. The EKG portion of the Lexiscan is nondiagnostic. 2. No scintigraphic evidence of reversible ischemia seen, computer derived ejection fraction is 62% with no regional wall motion abnormality, right ventricle is normal size and contractility. 3. Normal Lexiscan Myoview study. Electronically signed by : Ralph Harrington MD 01/19/2023 14:43:16
== END ==
PROVIDERS: PCP Internal Medicine Adolescent Medicine; Visit Provider Physician Assistant
DX: I25.10 Atherosclerotic heart disease of native coronary artery without angina pectoris (principal); I34.0 Nonrheumatic mitral (valve) insufficiency; I35.1 Nonrheumatic aortic (valve) insufficiency; Z95.5 Presence of coronary angioplasty implant and graft; R07.89 Other chest pain
CPT/HCPCS: 78452; 93017; 93306; A9502; J2785

== ENCOUNTER → 2023-03-20 10:16 | Outpatient (CLI) | payer MEDICARE, SELFPAY ==
--- NOTE | 2023-03-20 10:21 | MM_ITS ---
PROCEDURE INFORMATION: Exam: MG Bilateral Screening 3D Mammography Exam date and time: 03/20/2023 10:21 AM Age: 82 years old Clinical indication: Screening mammogram TECHNIQUE: Imaging protocol: Bilateral Screening tomosynthesis and 2D mammography including computer-aided detection (CAD) when performed. COMPARISON: 1. MG MM DIG SCREENING MAMM BI W/CAD 02/01/2022 10:19 AM 2. MG MM DIG SCREENING MAMM BI W/CAD 11/01/2020 10:25 AM 3. MG MM DIG SCREENING MAMM BI W/CAD 10/21/2019 10:04 AM 4. MG SCBI MM Dig screening mamm BI w/CAD 10/21/2018 10:06 AM FINDINGS: MAMMOGRAPHY: Breast composition: There are scattered areas of fibroglandular density. Mass: Stable benign-appearing subcentimeter nodules are present in the left breast. No new or morphologically suspicious nodule has developed to suggest malignancy. Architectural distortion: No new or suspicious architectural distortion. Calcifications: No new or suspicious calcifications are present Asymmetric density: No new or suspicious asymmetric density is present Skin thickening: None. Axillary adenopathy: None. IMPRESSION: No mammographic evidence of malignancy. Recommend annual screening mammography unless otherwise clinically indicated. ASSESSMENT: BI-RADS category 2: Benign
== END ==
PROVIDERS: PCP Internal Medicine Cardiovascular Disease; Visit Provider Internal Medicine Adolescent Medicine
DX: Z12.31 Encounter for screening mammogram for malignant neoplasm of breast (principal)
CPT/HCPCS: 77063; 77067

== ENCOUNTER 2023-05-09 11:00 | Outpatient (RCR) | payer MEDICARE, SELFPAY ==
--- NOTE | 2023-04-12 10:47 | HMH.PTOPEV ---
PT Outpatient Evaluation Rehab PT Outpatient Evaluation Start: 04/12/23 10:31 Freq: Status: Active Protocol: Document 04/12/23 10:31 CHAPINLUIS (Rec: 04/12/23 10:46 GRACIELA [id number]) E-signed By Iam Perez, PT Outpatient Therapy Subjective History Subjective History Patient is an 82 year old female presenting to outpatient PT with reports of BLE weakness and poor balance. Patient reports 2 falls at home over the past month. Most recently, I just lost my balance and fell back and hit my head. Patient reports that she was taken to [facility] ED for further diagnostics and diagnosed with a concussion. She has also been referred for R knee pain and osteopenia, though she has no complaints of pain today. 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 I just get really tired. Comorbidities include hx of CV stent x 3, HTN and HL. Chief Complaint Gives out/Unstable,Weakness, Decreased Coordination Symptoms Relieved By Rest/Positioning Symptoms Aggravated By Standing,Bending/Stooping, Physical Activity,Walking, Lifting Prior Functional Limitations None Current Functional Limitations Lifting,Housework,Standing, Walking,Stairs,Balance,Bending /Stooping Hip/Knee Eval Gait Observation General Gait Pattern Observation Wide Based Gait MMT bilateral Hip Flexion Strength Grade 4- Good- Hip Abduction Strength Grade 4- Good- Hip Adduction Strength Grade 4- Good- Hip Extension Strength Grade 4- Good- Hip External Rotation Strength Grade 4- Good- Hip Internal Rotation Strength Grade 4- Good- Knee Extension Strength Grade 4 Good Knee Flexion Strength Grade 4 Good ROM Hip ROM Reason Not Measured Within Functional Limits Knee ROM Reason Not Measured Within Functional Limits Special Tests Knee Valgus Stress Test Negative Left,Negative Right Knee Varus Stress Test Negative Left,Negative Right Balance Eval Subjective Hx of Complaint Comment Difficulty with all standing/ ambulatory activities. Prior Functional Limitations Prior Func
== END 2023-05-09 11:05 | disposition home or self-care (01) ==
LOC: PT 11:00
PROVIDERS: PCP Internal Medicine Cardiovascular Disease; Visit Provider Internal Medicine Adolescent Medicine
DX: R29.6 Repeated falls (principal); R26.89 Other abnormalities of gait and mobility; M62.81 Muscle weakness (generalized); M25.561 Pain in right knee; M85.80 Other specified disorders of bone density and structure, unspecified site; M25.559 Pain in unspecified hip; G35 Multiple sclerosis
CPT/HCPCS: 97110; 97112; 97163; 97530; 97535

== ENCOUNTER 2024-03-24 10:26 | Outpatient (CLI) | payer MEDICARE, SELFPAY ==
--- NOTE | 2024-03-24 10:30 | MM_ITS ---
PROCEDURE INFORMATION: Exam: MG Bilateral Screening 3D Mammography Exam date and time: 03/24/2024 10:18 AM Age: 83 years old Clinical indication: Screening examination TECHNIQUE: Imaging protocol: Bilateral Screening tomosynthesis and 2D mammography including computer-aided detection (CAD) when performed. COMPARISON: 1. MG MM DIG SCREENING MAMM BI W/CAD 03/20/2023 10:21 AM 2. MG MM DIG SCREENING MAMM BI W/CAD 02/01/2022 10:19 AM FINDINGS: MAMMOGRAPHY: Breast composition: There are scattered areas of fibroglandular density. Mass: None. Architectural distortion: None. Calcifications: No suspicious calcifications. Asymmetric density: None. Skin thickening: None. Axillary adenopathy: None. IMPRESSION: No mammographic evidence of malignancy. Annual screening is recommended unless otherwise clinically indicated. ASSESSMENT: BI-RADS Category 1: Negative
== END 2024-03-24 23:59 | disposition home or self-care (01) ==
LOC: RAD 10:26
PROVIDERS: PCP Internal Medicine Adolescent Medicine; Visit Provider Internal Medicine Adolescent Medicine
DX: Z12.31 Encounter for screening mammogram for malignant neoplasm of breast (principal)
CPT/HCPCS: 77063; 77067

== ENCOUNTER 2024-06-19 09:01 | Outpatient (CLI) | payer MEDICARE, SELFPAY ==
--- NOTE | 2024-06-19 09:05 | XR_ITS ---
FINAL REPORT TECHNIQUE: Bone densitometry calculations of the lumbar spine and left hip were obtained. CLINICAL HISTORY: OSTEOPENIA COMPARISON: 06/28/2021 FINDINGS: Using L1-4, the bone mineral density of the spine is 1.309 g/cm2, corresponding to T-score of 2.4. Using the left hip, the bone mineral density of the femoral neck is 0.752 g/cm2, corresponding to a T-score of -1.6. NOTE: T-score: Standard deviation compared with peak bone mass of young adult mean. *Following the recommendations of the International Society of Bone densitometry, classification of hip BMD is based on the lower of two T-scores; total hip or femoral neck. IMPRESSION: Diminished bone mineral density of the left hip consistent with osteopenia. Normal bone mineral density of the lumbar spine. Reviewed, Interpreted and Dictated by Wilton Barriga MD Transcribed by Anita Calvillo Authenticated and [facility]
== END 2024-06-19 23:59 | disposition home or self-care (01) ==
LOC: RAD 09:01
PROVIDERS: PCP Internal Medicine Adolescent Medicine; Visit Provider Internal Medicine Adolescent Medicine
DX: M85.88 Other specified disorders of bone density and structure, other site (principal)
CPT/HCPCS: 77080

== ENCOUNTER 2025-04-15 12:46 | Outpatient (CLI) | payer MEDICARE, SELFPAY ==
--- NOTE | 2025-04-15 12:50 | MM_ITS ---
PROCEDURE INFORMATION: Exam: MG Bilateral Screening 3D Mammography Exam date and time: 04/15/2025 12:55 PM Age: 84 years old Clinical indication: Screening examination TECHNIQUE: Imaging protocol: Bilateral Screening tomosynthesis and 2D mammography including computer-aided detection (CAD) when performed. COMPARISON: 1. MG MM DIG SCREENING MAMM BI W/CAD 03/24/2024 10:18 AM 2. MG MM DIG SCREENING MAMM BI W/CAD 03/20/2023 10:21 AM FINDINGS: MAMMOGRAPHY: Breast composition: There are scattered areas of fibroglandular density. Mass: None. Architectural distortion: None. Calcifications: No suspicious calcifications. Asymmetric density: None. Skin thickening: None. Axillary adenopathy: None. IMPRESSION: No mammographic evidence of malignancy. Annual screening is recommended unless otherwise clinically indicated. ASSESSMENT: BI-RADS Category 1: Negative.
== END 2025-04-15 23:59 | disposition home or self-care (01) ==
LOC: RAD 12:47
PROVIDERS: PCP Internal Medicine Adolescent Medicine; Visit Provider Internal Medicine Adolescent Medicine
DX: Z12.31 Encounter for screening mammogram for malignant neoplasm of breast (principal); R92.323 Mammographic fibroglandular density, bilateral breasts
CPT/HCPCS: 77063; 77067